=== PATIENT | female | born 1965 | race Caucasian/White ===

== ENCOUNTER 2022-05-24 03:39 | Emergency (ER) | payer OTHER, SELFPAY ==
[2022-05-24 03:44] VITALS: BP 140/75; PULSE 73; RESP 25; TEMP 37; O2SAT 99; BMI 23.0
[2022-05-24 04:09] LABS: MANUAL DIFF FLAG NO
[2022-05-24 04:10] LABS: Basophils Percent Auto 0.6 % (0-2); Eosinophils Absolute Auto 0.2 X10*3/uL (0.0-0.4); Eosinophils Percent Auto 2.5 % (0-4); Hematocrit 41.3 % (37.0-47.0); Hemoglobin 13.5 g/dl (12.0-16.0); Imm Gran Abs Auto 0.05 X10*3/uL (0.00-0.03); Imm Gran Pct Auto 0.7 % (0.0-0.4); Lymphocytes Absolute Auto 2.6 X10*3/uL (1.2-4.9); Lymphocytes Percent Auto 37.7 % (20-40); Mean Corpuscular HGB Conc 32.7 g/dl (31.0-35.0); Mean Corpuscular Hemoglobin 29.4 pg (27.0-33.0); Mean Platelet Volume 9.7 fL (9.4-12.3); Monocytes Absolute Auto 0.6 X10*3/uL (0.1-1.2); Monocytes Percent Auto 8.5 % (2-11); Neutrophils Absolute Auto 3.5 x10*3/uL (2.0-8.3); Platelet Count 299 X10*3/uL (160-400); Red Blood Count 4.59 X10*6/uL (4.20-5.50); Red Cell Distribution Width 11.6 % (11.0-16.0); White Blood Count 6.9 X10*3/uL (4.8-10.8)
[2022-05-24 04:11] LABS: Appearance Urine Clear; Color Urine Yellow; Glucose Urine UA Negative (Negative); Leukocyte Esterase Urine Large (3+) (Negative); Nitrite Urine Positive (Negative); PH 5.5 (5.0-9.0); Specific Gravity - Urine 1.015 (1.005-1.025); UMIC TRIGGER UACC YES; Urine Blood Large (3+) (Negative); Urine Ketones Negative (Negative); Urine Protein 30 (1+) mg/dL (Neg-Trace)
[2022-05-24 04:16] LABS: Bacteria Urine 4+ (None Seen); Hyaline Casts Urine 0-2 /LPF (0-2); RBC Urine >20 /HPF (0-2); UACC Culture Trigger YES; WBC Urine >50 /HPF (0-5)
[2022-05-24 04:27] LABS: Alanine Aminotransferase 17 U/L (0-31); Albumin Level 4.3 g/dL (3.5-5.0); Alkaline Phosphatase 88 U/L (39-117); Anion Gap 17 (12-20); Aspartate Amino Transferase 17 U/L (5-31); Bilirubin Total 0.3 mg/dL (0.0-1.0); Blood Urea Nitrogen 20 mg/dL (9-16); Calcium 9.3 mg/dL (8.4-10.2); Carbon Dioxide 25 mmol/L (22-29); Chloride 105 mmol/L (96-108); Creatinine Clr Calc Pharmacy 60.5; Estimated Glomerular Filt Rate 56; Glucose Random 129 mg/dL (60-115); Potassium 4.1 mmol/L (3.3-5.1); Sodium 143 mmol/L (135-145); Total Protein 6.9 g/dL (6.5-8.0)
[2022-05-24 04:32] VITALS: BP 151/95; PULSE 71; RESP 17; TEMP 37; O2SAT 99
--- NOTE | 2022-05-24 04:52 | ED.ABDPAIN ---
HPI - Abdominal Pain General Chief Complaint: Abdominal Pain Stated Complaint: Abd pain Time Seen by Provider: 05/24/22 04:37 Source: patient Mode of arrival: ambulatory Limitations: no limitations History of Present Illness HPI narrative: Patient woke up at 01:00 with left lower abdominal pain with nausea vomited 2 times urinating small amount no dysuria no frequency had some chills no fever no flank pain with no history of ovarian cyst no vaginal discharge. At this time pain is getting better of off its own Related Data Previous Rx's Medication Instructions Recorded cefuroxime axetil 250 mg tablet 250 mg PO BID 7 days #14 tabs 05/24/22 ibuprofen 600 mg tablet 600 mg PO Q6H PRN fever or pain 05/24/22 #30 tabs phenazopyridine 200 mg tablet 200 mg PO TID 2 days #6 tabs 05/24/22 (Pyridium) Allergies Allergy/AdvReac Type Severity Reaction Status Date / Time No Known Allergies Allergy Verified 05/24/22 03:45 [No Known Allergies*] Review of Systems Review of Systems Yes all other systems are reviewed and are negative [facility] Social History Social History Advance Directives: No Advance Directives Information Provided: Yes Patient : No Physical Exam ED Vital Signs: Vital Signs - 24 hr 05/24/22 03:44 05/24/22 04:32 Temperature 98.6 F 98.6 F Pulse Rate 73 71 Respiratory Rate 25 H 17 Blood Pressure 140/75 H 151/95 H Pulse Oximetry 99 99 Oxygen Delivery Method Room Air Room Air BMI result Body Mass Index 23.0 Appearance: Alert. Oriented X3. No acute distress. ENT: Pharynx normal. Oral Mucosa moist Neck: Normal inspection. Neck supple. CVS: Normal heart rate and rhythm. Pulses normal. Respiratory: No respiratory distress. Equal air entry bilateral, no wheezing/rales/rhonchi Abdomen: Soft mild tenderness left lower quadrant no rebound tenderness or guarding. Bowel sounds are present, no mass palpable, no CVA tenderness Skin: Skin warm and dry. Normal skin color. Normal skin turgor. Extremities: No lower extremity edema. No calf tenderness Neuro: Oriented X 3. MDM - Abdominal Pain MDM Narrative Medical decision making narrative: Patient UTI patient feeling much better now with abdominal pain possible might have ovarian cyst patient does not want to stay till 07:00 for ultrasound will follow up with outpatient Differential Diagnosis Differential diagnosis: Likely ovarian cyst Lab Data Attestation: I reviewed the patient's lab results. Result diagrams: 05/24/22 04:04 05/24/22 04:04 Labs: Lab Results 05/24/22 05/24/22 05/24/22 Range/Units 04:04 04:04 04:04 WBC 6.9 (4.8-10.8) X10*3/uL RBC 4.59 (4.20-5.50) X10*6/uL Hgb 13.5 (12.0-16.0) g/dl Hct 41.3 (37.0-47.0) % MCV 90.0 (80.0-98.0) fL MCH 29.4 (27.0-33.0) pg MCHC 32.7 (31.0-35.0) g/dl RDW 11.6 (11.0-16.0) % Plt Count 299 (160-400) X10*3/uL MPV 9.7 (9.4-12.3) fL Immature Gran % (Auto) 0.7 H (0.0-0.4) % Neut % (Auto) 50.0 (45-73) % Lymph % (Auto) 37.7 (20-40) % [place] % (Auto) 8.5 (2-11) % Eos % (Auto) 2.5 (0-4) % Baso % (Auto) 0.6 (0-2) % Lymph # (Auto) 2.6 (1.2-4.9) X10*3/uL [place] # (Auto) 0.6 (0.1-1.2) X10*3/uL Eos # (Auto) 0.2 (0.0-0.4) X10*3/uL Baso # (Auto) 0.0 (0.0-0.2) X10*3/uL Abs Immat Gran (auto) 0.05 H (0.00-0.03) X10*3/uL Absolute Neuts (auto) 3.5 (2.0-8.3) x10*3/uL Absolute Nucleated RBC 0.000 (0.0-0.012) X10*3/uL Nucleated RBC % (auto) 0.0 (0.0-0.2) /100WBC Sodium 143 (135-145) mmol/L Potassium 4.1 (3.3-5.1) mmol/L Chloride 105 (96-108) mmol/L Carbon Dioxide 25 (22-29) mmol/L Anion Gap 17 (12-20) BUN 20 H (9-16) mg/dL Creatinine 1.02 (0.5-1.4) mg/dL Estim Creat Clear Calc 60.5 Estimated GFR 56 Random Glucose 129 H (60-115) mg/dL Calcium 9.3 (8.4-10.2) mg/dL Total Bilirubin 0.3 (0.0-1.0) mg/dL AST 17 (5-31) U/L ALT 17 (0-31) U/L Alkaline Phosphatase 88 (39-117) U/L Total Protein 6.9 (6.5-8.0) g/dL Albumin 4.3 (3.5-5.0) g/dL Urine Color Yellow Urine Appearance Clear Urine pH 5.5 (5.0-9.0) Ur Specific [place] 1.015 (1.005-1.025) Urine Protein 30 (1+) H (Neg-Trace) mg/dL Urine Glucose (UA) Negative (Negative) mg/dL Urine Ketones Negative (Negative) mg/dL Urine Blood Large (3+) H (Negative) Urine Nitrite Positive H (Negative) Ur Leukocyte Esterase Large (3+) H (Negative) Urine RBC >20 H (0-2) /HPF Urine WBC >50 H (0-5) /HPF Ur Squamous Epith Cells 6-10 (0-2) /HPF Urine Bacteria 4+ (None Seen) Hyaline Casts 0-2 (0-2) /LPF Discharge Plan Discharge Clinical Impression: UTI (urinary tract infection) Patient Disposition: Home, Self-Care Instructions: Urinary Tract Infection in Women (ED) Additional Instructions: Drink plenty of water Antibiotic as advised Report to the ER if worsening of pain possibly you have ruptured small ovarian cyst on the left side Prescriptions: New cefuroxime axetil 250 mg tablet 250 mg PO BID 7 Days Qty: 14 0RF phenazopyridine [Pyridium] 200 mg tablet 200 mg PO TID 2 Days Qty: 6 0RF ibuprofen 600 mg tablet 600 mg PO Q6H PRN (Reason: fever or pain) Qty: 30 0RF
[2022-05-24] MEDS: Ibuprofen 600 MG TABLET PO (05:12)
[2022-05-24] MEDS: Ondansetron ODT 4 MG TAB.RAPDIS TRANSLINGU (05:12)
[2022-05-24 05:40] VITALS: BP 139/77; PULSE 70; RESP 16; TEMP 37; O2SAT 100
== END 2022-05-24 05:43 | disposition home or self-care (01) ==
PROVIDERS: Emergency Provider Internal Medicine
DX: N39.0 Urinary tract infection, site not specified (principal); R10.32 Left lower quadrant pain; Z79.899 Other long term (current) drug therapy
CPT/HCPCS: 36415; 80053; 81001; 85025; 87086; 87088; 87186; 99283; 99284

== ENCOUNTER 2024-10-27 15:23 | Outpatient (AMB) | payer OTHER, SELFPAY ==
--- NOTE | 2024-10-27 15:26 | A.OFFPC_ITS ---
Vital Signs 10/27/24 15:27 Height 5 ft 5.35 in Weight 151 lb 2 oz BMI 24.9 BP 120/72 Blood Pressure Location Lt brachial Position Sitting Pulse 77 Pulse Source Pulse Oximeter Temp 97.3 F Temp Source Temporal Artery Scan Pulse Oximetry (%) 98 Oxygen Delivery Method Room Air Intake Visit Reasons: establish care Intake Note: Patient is a new patient here to establish care for Hx of kidney stones. Transferring care from Dr Severino ([facility]). Medical records have been requested and have not received. Publications Distribution Clerk Required: No Chain Mender: Not Required per policy Accompanied by: Self / Same As Patient Allergies No Known Allergies [No Known Allergies*] Allergy (Verified 10/27/24 15:43) Medication List - Last Reconciled 10/27/24 by Nia Lopez PA-C No Known Home Meds Tobacco use date assessed: 10/27/24 Dental Screening Dental Screen Date: 10/27/24 Did you have a dental visit in the last 12 months?: Yes Did you have a dental problem in the last 6 months where you did not have access to dental care?: No Was dental information given to patient?: Patient has dentist HPI establish care HPI Details 59-year-old female coming to the office for the 1st time. Presenting for establishment of care and comprehensive wellness examination addressing urinary tract infections, and kidney stones. She has undergone a lumpectomy in the past for a benign breast lump. The patient reports recurrent urinary tract infections, associated with the presence of kidney stones. She does see Urology through [facility] U[facility] and gynecology through [place]. mammogram: UTD through [facility] Colonoscopy: last done 7 years ago pap smear: UTD through [facility] Vaccine: due to TdaP PFSH Medical History Benign breast lumps Surgical History History of lumpectomy History of cholecystectomy Family History Father Colon cancer, Onset Age: 70 Paternal Aunt Breast cancer Social History Housing: House Alcohol intake: current Alcohol intake frequency: holidays/special occasions only Patient Tobacco Use Status: Never used Tobacco e-Cigarette/Vaping Use: Never Used Second Hand Smoke Exposure: No service: No Current occupational status: employed Current occupation: Medical Assist Cognitive needs: No Hearing needs: No Vision needs: Yes (Glasses) Female Reproductive History Menstrual control method: none Total pregnancies: 2 Full term: 2 History of abnormal pap smear: Yes (most recently have been normal ) Questionnaire PHQ-9 Over the last 2 weeks, how often have you been bothered by any of the following problems? 1. Little interest or pleasure in doing things: not at all 2. Feeling down, depressed, or hopeless: not at all 3. Trouble falling or staying asleep, or sleeping too much: not at all 4. Feeling tired or having little energy: not at all 5. Poor appetite or overeating: not at all 6. Feeling bad about yourself - or that you are a failure or have let yourself or your family down: not at all 7. Trouble concentrating on things, such as reading the newspaper or watching television: not at all 8. Moving or speaking so slowly that other people could have noticed. Or the opposite - being so fidgety or restless that you have been moving around a lot more than usual: not at all 9. Thoughts that you would be better off or of hurting yourself in some way: not at all Total score: 0 Depression Screening Interpretation: Negative Depression Screening Done: Yes Source: Developed by Drs. Nitesh Dow, Apryl Castaneda, Sukhwinder Reyes and colleagues, with an educational kendell from [employer]. Thrive Questionnaire Date Thrive assessed: 10/20/24 I am a: Patient What is your living situation today?: I have a steady place to live Within the past 12 months, did the food you bought not last and you didn't have the money to get more?: Never true Within the past 12 months, did you worry whether your food would run out before you got money to buy more?: Never true Do you have trouble paying for medicines?: No Do you have trouble getting transportation to medical appointments?: No Do you have trouble paying your heating and electricity bill?: No Do you have trouble taking care of your child, family member or friend?: No Do you have trouble with day-to-day activities such as bathing, preparing meals, shopping, managing finances, etc.?: No Are you currently unemployed and looking for a job?: No Are you interested in more education?: No Please select the resources that you would like help with: None Currently or been in a relationship where the following occur: No concerns reported THRIVE Score: 0 AUDIT C Alcohol Use Questionnaire (AUDIT-C) 1. How often do you have a drink containing alcohol?: 2-4 times a month 2. How many drinks containing alcohol do you have on a typical day when you are drinking?: 1 or 2 3. How often do you have six or more drinks on one occasion?: Never Total Score: 2 DANG-7 AMB Questionnaire DANG-7 Date DANG - 7 assessed: 10/27/24 Feeling nervous, anxious, or on edge: 0 = Not at all Not being able to stop or control worryin = Not at all Worrying too much about different things: 0 = Not at all Trouble relaxin = Not at all Being so restless that it is hard to sit still: 0 = Not at all Becoming easily annoyed or irritable: 0 = Not at all Feeling afraid as if something awful might happen: 0 = Not at all Total DANG-7 score (0-4 normal; 5-9 mild; 10-14 moderate; 15-21 severe): 0 Source: Developed by Drs. Nitesh Dow, Apryl Castaneda, Sukhwinder Reyes and colleagues, with an educational kendell from [employer]. DANG-7 Assessment Billing DANG-7 Assessment Tool: DANG-7 Assessment 20584 Review of Systems Const Denies body aches, Denies chills, Denies fever(s), Denies headache(s) and Denies poor appetite Eyes Reports no additional complaints ENT Denies dysphagia, Denies dizziness, Denies headache(s) and Denies odynophagia Card Denies chest pain, Denies syncope, Denies edema, Denies irregular heart rhythm, Denies lightheadedness and Denies dyspnea Resp Denies cough and Denies dyspnea GI Denies abdominal pain, Denies constipation, Denies dysphagia, Denies diarrhea, Reports loose stools, Denies nausea, Denies odynophagia and Denies vomiting Details: recurrent UTI Reports no additional complaints Musc Reports no additional complaints and Denies abnormal gait Skin/Breast Reports system reviewed and no additional complaints, except as documented Neuro Denies abnormal gait, Denies dizziness, Denies syncope and Denies headache(s) Psych Reports no additional complaints Physical exam (Primary Care) Vital Signs: Last Vital Signs Temp 97.3 F 10/27/24 15:27 Pulse 77 10/27/24 15:27 BP 120/72 10/27/24 15:27 Pulse Ox 98 10/27/24 15:27 Oxygen Delivery Method Room Air 10/27/24 15:27 BMI result Body Mass Index 24.9 Tobacco/Smoking Status: Tobacco use Status Tobacco use date assessed 10/27/24 10/27/24 15:32 Patient Tobacco Use Status Never used Tobacco 10/27/24 15:36 e-Cigarette/Vaping Use Never Used 10/27/24 15:36 PHQ-9: PHQ-9 Score PHQ-9: Total score 0 10/27/24 15:42 Depression Screening Interpretation: Negative Thrive Assessment: Date of Thrive Assessment Date Thrive assessed 10/20/24 10/27/24 15:32 Currently or been in a relationship where the following occur: No concerns reported Const General: cooperative, healthy appearing, comfortable and no acute distress Orientation/consciousness: patient oriented x3 HENMT Head: Yes normocephalic Ears: hearing grossly normal bilaterally General nose exam: Normal external nose present Eyes General: appearance normal, both eyes and all related structures Conjunctivae: conjunctivae normal Neck Neck: Yes full ROM and Yes no lymphadenopathy Resp Effort & Inspection: normal respiratory effort Auscultation: clear to auscultation bilaterally, no crackles, no rales, no rhonchi and no wheezes Cardio Rate: regular rate Rhythm: regular rhythm Skin General skin exam: no rashes or lesions noted Neuro General: patient oriented x3 Gait exam (Neuro): Normal gait present Extrem General: Yes normal to inspection, Yes full ROM and No edema Psych Affect: normal affect Attitude: cooperative Insight: Good insight present (Psych) Judgement: Good judgement present (Psych) Immunizations Boostrix Tdap 2.5 Lf unit-8 mcg-5 Lf/0.5 mL intramuscular syringe Performing Provider: Nia Lopez PA-C [facility] Administered by: AMBER Lantigua on 10/27/24 16:00 Dose Route Admin Location Dispensed Lot Number Expiration Date NDC Veterinary Surgery Technologist 0.5 mL IM Left Deltoid 0.5 mL [id number] 01/28/27 [id number] [employer] VIS Given Date VIS Provided VIS Publication Date 10/27/24 Single Vaccine 24 Eligibility Eligibility Date Funding Source Not [facility] Eligible 10/27/24 Private Coding Level of Care Code New Pt Level 3 (90555) Diagnoses Loose stools R19.5 Recurrent UTI N39.0 Nephrolithiasis N20.0 Additional Codes DANG-7 Assessment Billing - DANG-7 Assessment Tool: DANG-7 Assessment 98225 ([id number]) Assessment & Plan Assessment & Plan (1) Loose stools: Code(s): R19.5 - Other fecal abnormalities Category: Medical Plan: Patient having occasional loose stools. She is due for colonoscopy and referral was placed to gastroenterology today. Advised to add fiber supplemented diet to bind the stools and make formed stools. (2) Recurrent UTI: Code(s): N39.0 - Urinary tract infection, site not specified Category: Medical Plan: Continue to follow with [facility] Urology, stay well hydrated. (3) Nephrolithiasis: Code(s): N20.0 - Calculus of kidney Category: Medical Plan: Patient follows with [facility] Urology plan to request these notes. Advised to stay well hydrated. Plan A comprehensive health evaluation was initiated to solidify patient care. Essential blood work ordered includes tests of thyroid, kidney, liver functions, and a cholesterol panel with an emphasis on fasting. Continuity of screening with mammograms is maintained, and a referral was arranged for overdue colonoscopy. Dietary advice included increasing fiber, whether through supplements or fiber-rich foods. Updated tetanus vaccination was completed today. Follow-up to review labs and conduct a full annual exam is planned in approximately three months. Management of UTIs and kidney stones continues under urology care. This note was constructed using voice recognition software. While every effort has been made to ensure accuracy and sterilizer machine operator, still areas may have been included sometimes these areas may affect the content or meeting of the given symptoms. Total time spent caring for the patient today was 30 minutes. This includes time spent before the visit reviewing the chart, time spent during the visit, and time spent after the visit and documentation. Patient was informed and verbally consented to the use of an ambient scribe for clinic note documentation during this visit. Orders: Orders Comprehensive Met. Panel Today Z00.00 - Encounter for general adult medical examination without abnormal findings Free T4 (Free Thyroxine) Today Z00.00 - Encounter for general adult medical examination without abnormal findings TSH reflex Free T4 Today Z00.00 - Encounter for general adult medical examination without abnormal findings Lipid Panel Today Z13.220 - Encounter for screening for lipoid disorders TDaP Immunization Today Z23 - Encounter for immunization Complete Blood Count Auto Diff Today Z00.00 - Encounter for general adult medical examination without abnormal findings Vitamin B12 and Folate Today Z00.00 - Encounter for general adult medical examination without abnormal findings Vitamin D 25-OH Total Today Z00.00 - Encounter for general adult medical examination without abnormal findings Referrals Gastroenterology Referral Z12.11 - Encounter for screening for malignant neoplasm of colon Medications: New Boostrix Tdap (diphth,pertus(acell),tetanus) 0.5 mL IM ONCE 0.5 mL 0RF NS Z23 - Encounter for immunization Discontinued ibuprofen Discontinued Reason: Patient no longer taking 600 mg PO Q6H PRN 30 tabs 0RF fever or pain cefuroxime axetil Discontinued Reason: Patient no longer taking 250 mg PO BID 7 days 14 tabs 0RF phenazopyridine (Pyridium) Discontinued Reason: Patient no longer taking 200 mg PO TID 2 days 6 tabs 0RF
[2024-10-27 15:27] VITALS: BP 120/72; PULSE 77; TEMP 36.3; O2SAT 98; BMI 24.9
--- OUTSIDE RECORDS SUMMARY | 2024-10-27 17:21 | XMS_ITS | Clinical Summary ---
Author Organization [facility] Address [address] [place] [address] Care Team Providers Care Grader Marker Name Role Phone Maryann Westbrook MD Primary Care Provider [phone] Surgical History Surgery Date Site/Laterality Comments OTHER SURGICAL HISTORY PROCEDURE: ---- OTHER ----; COMMENT: breast biopsy/benign WISDOM TOOTH EXTRACTION PROCEDURE: HISTORICAL WISDOM TEETH EXTRACTION COLONOSCOPY 12/19/2015 PROCEDURE: HISTORICAL COLONOSCOPY; COMMENT: adenoma; repeat in 5 yrs OTHER SURGICAL HISTORY 01/11/2021 N/A PROCEDURE: [place] LAPS SURG CHOLECSTC W/EXPL COMMON DUCT; COMMENT: lap urbano with cholangiogram and CBD exploration - Dr. Christopher Blair [facility] BREAST BIOPSY Right PROCEDURE: BX BREAST; PERC NEEDLE CORE W/IMAG GUID; COMMENT: benign FINE NEEDLE ASPIRATION 03/2020 Left PROCEDURE: FINE NDLE ASPRTN W/IMAGING GUIDANCE; COMMENT: apocrine metaplasia LITHOTRIPSY 05/21/2021 PROCEDURE: HISTORICAL LITHOTRIPSY; COMMENT: right-sided ureteroscopic stone lithotripsy and stone removal, right-sided urtereronephroscopic stone lithotripsy and stone removal, right sided retrograde pyelogram and stent exchange, Dr. 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 Christopher Blair Renal calculus, right DX:Renal c alculus, right; COMMENT: followed by Dr. Mariia Adams History of abnormal mammogram DX :History of abnormal mammogram; COMMENT: Left breast, US guided core biopsy done, [facility] for repeat mammogram 02/24/2021 Hydronephrosis DX:Hydronephrosi s; COMMENT: CT abdomen and pelvis with contrast on 01/09/2021 shows right renal staghorn calculus and additional nonobstructing right renal calculi along with moderate to severe right hydronephrosis Nephrolithiasis 07/05/2021 DX:Nephrolithias is; COMMENT: H/o right-sided lower pole staghorm kidney stone s/p lithotripsy with Dr. Gore Family History Medical History Relation Name Comments Breast cancer Aunt paternal aunt, 60s Diabetes Brother 1 HTN, cholestero l Hypertension Brother 2 Hypertension Brother 3 No Known Problems Brother 4 No Known Problems Brother 5 No Known Problems Brother 6 No Known Problems Daughter Colon cancer Father hypertension, h yperlipidemia, hypothyroid, dementia Hypertension Mother cholesterol, DM , smoker, AAA Diabetes Sister COPD, cholester ol No Known Problems Son Ovarian cancer Neg Hx Relation Name Status Comments Aunt Brother 1 Alive Brother 2 Alive Brother 3 Alive Brother 4 Alive Brother 5 Alive Brother 6 Alive Daughter Alive 1991; [place] Father (Age 83) Mother (Age 72) Sister Alive Son Alive 1995; Vitaliy Social History Tobacco Use Types Packs/Day Years Used Date Smoking Tobacco: Never Smokeless Tobacco: Never Alcohol Use Standard Drinks/Week Comments Yes 0.8 (1 standard drink = 0.6 oz p ure alcohol) Comments Unknown Sex and Gender Information Value Date Recorded Sex Assigned at Not on file Legal Sex Female 12:13 AM EST Gender Identity Not on file Sexual Orientation Not on file Obstetrics History Last Filed Vital Signs Vital Sign Reading Time Taken Comments Blood Pressure 124/89 08/15/2023 2:31 PM EST Pulse 87 08/15/2023 2:31 PM EST Temperature - - Respiratory Rate - - Oxygen Saturation - - Inhaled Oxygen Concentration - - Weight 67.9 kg (149 lb 9.6 oz) 08/15/2023 2:31 P M EST Height 170.2 cm (5' 7 ) 08/15/2023 2:31 PM EST Body Mass Index 23.43 08/15/2023 2:31 PM EST Plan of Treatment Upcoming Encounters Date Type Department Care Team ([facility] st Contact Info) Description 05/13/2025 2:00 PM EDT Appointment Radiology Department [address] [phone] Health Maintenance Due Date Last Done Comments Hepatitis B Vaccines (1 of 3 - 19+ 3-dose series) 1986 Pneumococcal Vaccine: 50+ Years (1 of 2 - PCV) 1986 Pneumococcal Vaccine: Pediatrics (0 to 5 Years) and At-Risk Patients (6 to 64 Years) (1 of 2 - PCV) 1986 Zoster Vaccines (1 of 2) 1986 COVID-19 Vaccine (3 - Pfizer risk series) 12/16/2020 11/18/2020, 10/28/2020 DTaP,Tdap,and Td Vaccines (3 - Td or Tdap) 12/01/2021 12/02/2011, 03/02/2007 Cholesterol Screening (Lipid Panel) 06/29/2022 Colorectal Cancer Screening: Colonoscopy 06/29/2022 Depression Screening 06/29/2022 HIV Screening 06/29/2022 Hepatitis C Screening 06/29/2022 Social Influencers of Health Screening 06/29/2022 Cervical Cancer Screening: Pap Smear 08/15/2024 08/15/2023 Influenza Vaccine (Season Ended) 2025 04/02/2021, 03/20/2015 Breast Cancer Screening 04/23/2026 04/23/20 24, 04/23/2024, 04/18/2023, Additional history exists HIB Vaccines Aged Out No longer eligi ble based on patient's age to complete this topic HPV Vaccines Aged Out No longer eligi ble based on patient's age to complete this topic Hepatitis A Vaccines Aged Out No long er eligible based on patient's age to complete this topic IPV Vaccines Aged Out No longer eligi ble based on patient's age to complete this topic MMR Vaccines Aged Out No longer eligi ble based on patient's age to complete this topic Meningococcal ACWY Vaccine Aged Out N o longer eligible based on patient's age to complete this topic Meningococcal B Vaccine Aged Out No l onger eligible based on patient's age to complete this topic RSV Immunization Patients Under 20 months Aged Out No longer eligible based on patient's age to complete this topic Varicella Vaccines Aged Out No longer eligible based on patient's age to complete this topic Procedures Procedure Name Priority Date/Time Associated Diagnosis Comments SCREENING MAMMOGRAPHY BI 2-VIEW BREAST INC CAD Routine 04/23/2024 2:00 PM EDT Encounter for screening mammogram for malignant neoplasm of breast PAP SMEAR Routine 08/15/2023 from Last 3 Months or Most Recently Relevant to Health Maintenance Results * SCREENING MAMMOGRAPHY BI 2-VIEW BREAST INC CAD (04/23/2024 2:00 PM EDT) Anatomical Region Laterality Modality Radiographic Heidi ging 04/18/2023 1:51 PM EDT Narrative 04/26/2024 7:56 AM EDT This is a summary report. The complete report is available in the patient's medical record. If you cannot access the medical record, please contact the sending organization for a detailed fax or copy. Exam: Screening mammogram Findings: Digital bilateral full-field screening mammography is performed with tomosynthesis and interpreted with the aid of computer-aided detection. ??Comparison is made with 04/18/2023 and as far back as 02/16/2020. Breast parenchyma is composed of scattered fibroglandular densities. ??Stable bilateral nodularity. No new suspicious mass, architectural distortion, or suspicious calcifications. Impression: No mammographic evidence of malignancy. BI-RADS 2-benign [address] [address] Procedure Note Pati Blevins MD - 06/14/2024 This is a summary report. The complete report is available in thepatient's medical record. If you cannot access the medical record, pleasecontact the sending organization for a detailed fax or copy. Exam: Screening mammogram Findings: Digital bilateral full-field screening mammography is performedwith tomosynthesis and interpreted with the aid of computer-aideddetection. Comparison is made with 04/18/2023 and as far back as02/16/2020. Breast parenchyma is composed of scattered fibroglandular densities.Stable bilateral nodularity. No new suspicious mass, architecturaldistortion, or suspicious calcifications. Impression: No mammographic evidence of malignancy. BI-RADS 2-benign [address] [address] us Carina HENRY IMG XR PROCEDURES Final Result * Pap smear (08/15/2023) 08/15/2023 Narrative HISTORICAL TESTING LAB RESULTING AGENCY - 08/29/2023 4:46 PM EST [id number] THINPREP PAP, IMAGED: NEGATIVE FOR SQUAMOUS INTRAEPITHELIAL LESION AND MALIGNANCY . REACTIVE CELLULAR CHANGES. MICHOACANO MEDRANO M.D. , PATHOLOGIST (CASE ELECTRONICALLY SIGNED 08 29 2023) RESULT OF APTIMA HIGH RISK HPV ASSAY: HIGH RISK HPV: ??NEGATIVE (SEROTYPES 16,18,31,33,35,39,45,51,52,56,58,59,66,68) COMPLETED ON 2023-08-20 ADEQUACY: SATISFACTORY ENDOCERVICAL/TRANSFORMATION ZONE COMPONENT PRESENT. SOURCE: THINPREP PAP HPV ANY DX: ??REFLEX 16 AND 18, CERVICAL, IMAGED CLINICAL INFORMATION: HPV ANY DIAGNOSIS. LMP 11/27/2016, PAP HX NEGATIVE, [Z01.419] us Jessica Magallanes CN LAB CYTOLOGY ORDERABLES Final R esult HISTORICAL TESTING LAB RESULTING AGENCY from Last 3 Months or Most Recently Relevant to Health Maintenance Care Teams Grader Marker Relationship Specialty Start Date End Date Maryann Westbrook MD [address] [facility] MEDICAL [facility] [place] [address] PCP - General Internal Medicine 01/10/21
== END 2024-10-27 16:03 | disposition home or self-care (01) ==
LOC: HO.HMCH 15:23
DX: R19.5 Other fecal abnormalities (principal); N39.0 Urinary tract infection, site not specified; N20.0 Calculus of kidney; Z23 Encounter for immunization

== ENCOUNTER → 2024-10-27 15:23 | Outpatient (BNVA) | payer OTHER, SELFPAY | DX: R19.5 Other fecal abnormalities (principal); Z23 Encounter for immunization; N39.0 Urinary tract infection, site not specified; N20.0 Calculus of kidney | CPT/HCPCS: 90471; 90715; 96127 ==

== ENCOUNTER 2024-11-30 11:50 | Emergency (ER) | payer OTHER, SELFPAY ==
--- NOTE | 2024-11-30 12:05 | ED_ITS ---
HPI - General Adult General Chief complaint: Abdominal Pain Stated complaint: Abd/back pain, nausea Time Seen by Provider: 11/30/24 14:31 Source: patient Mode of arrival: ambulatory Limitations: no limitations History of Present Illness ED Provider: Dr. Brown HPI narrative: 59 year old female PMH: Adrianna, lumpectomy, HLD, recurrent UTI's who presents to the ER for dysuria frequency and suprapubic pain. Patient had labs and urine sent in triage. Related Data Previous Rx's ?Medication ?Instructions ?Recorded cefuroxime axetil 500 mg tablet 500 mg PO BID 7 days #14 tabs 11/30/24 ondansetron 4 mg disintegrating 4 mg PO Q6H #14 tabs 11/30/24 tablet Allergies Allergy/AdvReac Type Severity Reaction Status Date / Time No Known Allergies Allergy Verified 11/30/24 12:07 [No Known Allergies*] Review of Systems 2 Review of Systems: Review of systems: General: Patient denies any fever chills recent illness or falls Musculoskeletal: Denies back pain or body aches or other injuries HEENT: denies headache, runny nose, ear pain Respiratory: denies shortness of breath, cough Cardiovascular: no chest pain or palpitations : dysuria, frequency Abdomen: no nausea vomiting she does have suprapubic abdominal pain Extremities: no swelling, no pain Skin: no diaphoresis Yes all other systems are reviewed and are negative PMFSH Past Medical History Medical History Benign breast lumps Surgical History History of lumpectomy History of cholecystectomy Family History Family History Father Colon cancer, Onset Age: 70 Paternal Aunt Breast cancer Social History Social History Housing: House Alcohol intake: current Alcohol intake frequency: holidays/special occasions only Patient Tobacco Use Status: Never used Tobacco Smoked in Last 30 Days: No e-Cigarette/Vaping Use: Never Used Second Hand Smoke Exposure: No Use of substances other than those prescribed or required for medical reasons: No Advance Directives: No Advance Directives Information Provided: Yes Patient : No service: No Current occupational status: employed Current occupation: Medical Assist Cognitive needs: No Hearing needs: No Vision needs: Yes (Glasses) Physical Exam ED Vital Signs: Vital Signs - 24 hr 11/30/24 12:06 Temperature 98.4 F Pulse Rate 92 Respiratory Rate 18 Blood Pressure 132/86 Pulse Oximetry 100 Oxygen Delivery Method Room Air BMI result Body Mass Index 23.2 General: Well-appearing well-nourished in no signs of distress HEENT: Normocephalic atraumatic Neck: No signs of JVD, no masses no tenderness or lymphadenopathy Cardiovascular: Regular rate and rhythm Respiratory: Clear to auscultation bilaterally Abdomen: Soft nontender no masses pain had no CVA tenderness Extremities: Normal pedal pulses no signs of edema Skin: Dry warm no rashes Back: No tenderness full ROM Course Course Course Narrative: This is a rapid medical exam performed by Dia Mendez NP: Additional HPI, ROS, PE not included below will be deferred to primary provider. Patient is a 59-year-old female with pmhx recurrent UTIs presenting to the ED with complaint of lower abdominal and back pain. Abd pain since Sat, lower back pain since this am. Vomiting yesterday, constant nausea, painful diarrhea. Decreased appetite. Plan: labs, UA Medical Decision Making Medical Decision Making [facility] Narrative: patient has no fever exam was benign I do not think it is any need further imaging a I think it is reasonable to start antibiotics and have the patient follow up with her doctor for Differential Diagnosis Differential Diagnoses: The differential diagnosis associated with the presentation includes UTI, pyelonephritis, sepsis Admission/Observation Consideration of admission/observation: Escalation of care including admission/observation considered Lab Data [facility] Lab Attestation statement: I reviewed the patient's lab results. 11/30/24 12:37 11/30/24 12:37 Labs: Lab Results 11/30/24 Range/Units 12:37 WBC 8.3 (4.8-10.8) X10*3/uL RBC 4.66 (4.20-5.50) X10*6/uL Hgb 14.2 (12.0-16.0) g/dl Hct 41.5 (37.0-47.0) % MCV 89.1 (80.0-98.0) fL MCH 30.5 (27.0-33.0) pg MCHC 34.2 (31.0-35.0) g/dl RDW 11.9 (11.0-16.0) % Plt Count 288 (160-400) X10*3/uL MPV 9.8 (9.4-12.3) fL Immature Gran % (Auto) 0.2 (0.0-0.4) % Neut % (Auto) 82.4 H (45-73) % Lymph % (Auto) 11.8 L (20-40) % [place] % (Auto) 4.8 (2-11) % Eos % (Auto) 0.4 (0-4) % Baso % (Auto) 0.4 (0-2) % Lymph # (Auto) 1.0 L (1.2-4.9) X10*3/uL [place] # (Auto) 0.4 (0.1-1.2) X10*3/uL Eos # (Auto) 0.0 (0.0-0.4) X10*3/uL Baso # (Auto) 0.0 (0.0-0.2) X10*3/uL Abs Immat Gran (auto) 0.02 (0.00-0.03) X10*3/uL Absolute Neuts (auto) 6.9 (2.0-8.3) x10*3/uL Absolute Nucleated RBC 0.000 (0.0-0.012) X10*3/uL Nucleated RBC % (auto) 0.0 (0.0-0.2) /100WBC Sodium 142 (135-145) mmol/L Potassium 3.9 (3.3-5.1) mmol/L Chloride 106 (96-108) mmol/L Carbon Dioxide 25 (22-29) mmol/L Anion Gap 15 (12-20) BUN 14 (9-16) mg/dL Creatinine 0.92 (0.5-1.4) mg/dL Estim Creat Clear Calc 65.5 Estimated GFR > 60 Random Glucose 96 (60-115) mg/dL Calcium 9.3 (8.4-10.2) mg/dL Magnesium 2.1 (1.6-2.6) mg/dL Total Bilirubin 0.5 (0.0-1.0) mg/dL AST 36 H (5-31) U/L ALT 24 (0-31) U/L Alkaline Phosphatase 93 (39-117) U/L Total Protein 7.3 (6.5-8.0) g/dL Albumin 4.4 (3.5-5.0) g/dL Urine Color Dark Yellow Urine Appearance Cloudy Urine pH 5.5 (5.0-9.0) Ur Specific Midnight 1.020 (1.005-1.025) Urine Protein 30 (1+) H (Neg-Trace) mg/dL Urine Glucose (UA) Negative (Negative) mg/dL Urine Ketones 15 (Negative) mg/dL Urine Blood Negative (Negative) Urine Nitrite Positive H (Negative) Ur Leukocyte Esterase Moderate (2+) H (Negative) Urine RBC 0-2 (0-2) /HPF Urine WBC 6-10 (0-5) /HPF Ur Squamous Epith Cells 0-2 (0-2) /HPF Calcium Oxalate Crystal Present Urine Bacteria 4+ (None Seen) Hyaline Casts 0-2 (0-2) /LPF Radiology Impression Discussion of test interpretation with radiology: I have reviewed the radiologist's reading. External Record Review External record reviewed: Office record Prescription Management I considered prescription management with: Antibiotic Discharge Plan Discharge Clinical Impression: UTI (urinary tract infection) Patient Disposition: Home, Self-Care Instructions: Urinary Tract Infection in Women (DC) Additional Instructions: You were seen in the ER for a bladder infection You were given antibiotics and had blood work If you have any other concerns please return to the ER. Prescriptions: New cefuroxime axetil 500 mg tablet 500 mg PO BID 7 Days Qty: 14 0RF ondansetron 4 mg tablet,disintegrating 4 mg PO Q6H Qty: 14 0RF Print Language: Trinidadian
[2024-11-30 12:06] VITALS: BP 132/86; PULSE 92; RESP 18; TEMP 36.9; O2SAT 100; BMI 23.2
[2024-11-30 12:42] LABS: MANUAL DIFF FLAG NO
[2024-11-30 12:45] LABS: Appearance Urine Cloudy; Color Urine Dark Yellow; Glucose Urine UA Negative (Negative); Leukocyte Esterase Urine Moderate (2+) (Negative); Nitrite Urine Positive (Negative); PH 5.5 (5.0-9.0); UMIC TRIGGER UACC YES; Urine Blood Negative (Negative); Urine Ketones 15 mg/dL (Negative); Urine Protein 30 (1+) mg/dL (Neg-Trace)
[2024-11-30 12:49] LABS: Basophils Percent Auto 0.4 % (0-2); Eosinophils Percent Auto 0.4 % (0-4); Hematocrit 41.5 % (37.0-47.0); Hemoglobin 14.2 g/dl (12.0-16.0); Imm Gran Abs Auto 0.02 X10*3/uL (0.00-0.03); Imm Gran Pct Auto 0.2 % (0.0-0.4); Lymphocytes Percent Auto 11.8 % (20-40); Mean Corpuscular HGB Conc 34.2 g/dl (31.0-35.0); Mean Corpuscular Hemoglobin 30.5 pg (27.0-33.0); Mean Corpuscular Volume 89.1 fL (80.0-98.0); Mean Platelet Volume 9.8 fL (9.4-12.3); Monocytes Absolute Auto 0.4 X10*3/uL (0.1-1.2); Monocytes Percent Auto 4.8 % (2-11); Neutrophils Absolute Auto 6.9 x10*3/uL (2.0-8.3); Neutrophils Percent Auto 82.4 % (45-73); Platelet Count 288 X10*3/uL (160-400); Red Blood Count 4.66 X10*6/uL (4.20-5.50); Red Cell Distribution Width 11.9 % (11.0-16.0); White Blood Count 8.3 X10*3/uL (4.8-10.8)
[2024-11-30 12:58] LABS: Bacteria Urine 4+ (None Seen); Calcium Oxalate Crystals Urine Present; Hyaline Casts Urine 0-2 /LPF (0-2); RBC Urine 0-2 /HPF (0-2); Squamous Epithelial Cell Urine 0-2 /HPF (0-2); UACC Culture Trigger YES
[2024-11-30 13:00] LABS: Alanine Aminotransferase 24 U/L (0-31); Albumin Level 4.4 g/dL (3.5-5.0); Alkaline Phosphatase 93 U/L (39-117); Anion Gap 15 (12-20); Aspartate Amino Transferase 36 U/L (5-31); Bilirubin Total 0.5 mg/dL (0.0-1.0); Blood Urea Nitrogen 14 mg/dL (9-16); Calcium 9.3 mg/dL (8.4-10.2); Carbon Dioxide 25 mmol/L (22-29); Chloride 106 mmol/L (96-108); Creatinine Clr Calc Pharmacy 65.5; Estimated Glomerular Filt Rate > 60; Glucose Random 96 mg/dL (60-115); Magnesium 2.1 mg/dL (1.6-2.6); Potassium 3.9 mmol/L (3.3-5.1); Sodium 142 mmol/L (135-145); Total Protein 7.3 g/dL (6.5-8.0)
[2024-11-30] MEDS: cefuroxime axetiL 500 MG TABLET PO (15:05)
[2024-11-30 15:08] VITALS: BP 132/86; PULSE 92; RESP 18; TEMP 36.9; O2SAT 100
--- OUTSIDE RECORDS SUMMARY | 2024-11-30 15:48 | XMS_ITS | Clinical Summary ---
Author Organization [facility] Address [address] [place] [address] Care Team Providers Care Garland Machine Operator Name Role Phone Maryann Westbrook MD Primary Care Provider [phone] Surgical History Surgery Date Site/Laterality Comments OTHER SURGICAL HISTORY PROCEDURE: ---- OTHER ----; COMMENT: breast biopsy/benign WISDOM TOOTH EXTRACTION PROCEDURE: HISTORICAL WISDOM TEETH EXTRACTION COLONOSCOPY 12/19/2015 PROCEDURE: HISTORICAL COLONOSCOPY; COMMENT: adenoma; repeat in 5 yrs OTHER SURGICAL HISTORY 01/11/2021 N/A PROCEDURE: [place] LAPS SURG CHOLECSTC W/EXPL COMMON DUCT; COMMENT: lap urbano with cholangiogram and CBD exploration - Dr. Christopher Blair [facility] BREAST BIOPSY Right PROCEDURE: BX BREAST; PERC [...] Left breast, US guided core biopsy done, [facility] for repeat mammogram 02/24/2021 Hydronephrosis DX:Hydronephrosi s; [...] Upcoming Encounters Date Type Department Care Team ([facility] st Contact Info) Description 05/13/2025 2:00 PM EDT Appointment Radiology Department [address] [phone] Health Maintenance Due Date Last Done Comments [...] No mammographic evidence of malignancy. BI-RADS 2-benign [address] [address] Procedure Note Pati Blevins MD [...] No mammographic evidence of malignancy. BI-RADS 2-benign [address] [address] [place] Carina HENRY IMG XR PROCEDURES Final Result * Pap smear (08/15/2023) 08/15/2023 Narrative HISTORICAL TESTING LAB RESULTING AGENCY - 08/29/2023 4:46 PM EST [id number] THINPREP PAP, IMAGED: NEGATIVE FOR SQUAMOUS INTRAEPITHELIAL [...] Recently Relevant to Health Maintenance Care Teams Garland Machine Operator Relationship Specialty Start Date End Date Maryann Westbrook MD [address] [facility] MEDICAL [place] [address] PCP - General Internal Medicine 01/10/21
== END 2024-11-30 15:08 | disposition home or self-care (01) ==
PROVIDERS: Registered Nurse Emergency; Emergency Provider Student in an Organized Health Care Education/Training Program
DX: N39.0 Urinary tract infection, site not specified (principal); R30.0 Dysuria
CPT/HCPCS: 36415; 80053; 81001; 83735; 85025; 87086; 87088; 87186; 99283; 99284

== ENCOUNTER 2024-12-18 07:33 | Outpatient (REF) | payer OTHER, SELFPAY ==
--- OUTSIDE RECORDS SUMMARY | 2024-12-18 07:35 | XMS_ITS | Clinical Summary ---
Author Organization [facility] Address [address] [place] [address] Care Team Providers Care Stereo Compiler Name Role Phone Maryann Westbrook MD Primary Care Provider [phone] Surgical History Surgery Date Site/Laterality Comments OTHER SURGICAL HISTORY PROCEDURE: ---- OTHER ----; COMMENT: breast biopsy/benign WISDOM TOOTH EXTRACTION PROCEDURE: HISTORICAL WISDOM TEETH EXTRACTION COLONOSCOPY 12/19/2015 PROCEDURE: HISTORICAL COLONOSCOPY; COMMENT: adenoma; repeat in 5 yrs OTHER SURGICAL HISTORY 01/11/2021 N/A PROCEDURE: [place] LAPS SURG CHOLECSTC W/EXPL COMMON DUCT; COMMENT: lap urbano with cholangiogram and CBD exploration - Dr. Christopher Blair [facility] BREAST BIOPSY Right PROCEDURE: BX BREAST; [...] Left breast, US guided core biopsy done, [facility] for repeat mammogram 02/24/2021 Hydronephrosis DX:Hydronephrosi s; [...] Upcoming Encounters Date Type Department Care Team ([facility] st Contact Info) Description 05/13/2025 2:00 PM EDT Appointment Radiology Department [address] [phone] Health Maintenance Due Date Last Done Comments [...] No mammographic evidence of malignancy. BI-RADS 2-benign [address] [address] Procedure Note Pati Blevins MD [...] No mammographic evidence of malignancy. BI-RADS 2-benign [address] [address] [place] Carina HENRY IMG XR PROCEDURES Final Result * Pap smear (08/15/2023) 08/15/2023 Narrative HISTORICAL TESTING LAB RESULTING AGENCY - 08/29/2023 4:46 PM EST [id number] THINPREP PAP, IMAGED: NEGATIVE FOR SQUAMOUS INTRAEPITHELIAL [...] Recently Relevant to Health Maintenance Care Teams Stereo Compiler Relationship Specialty Start Date End Date Maryann Westbrook MD [address] [facility] MEDICAL [facility] [place] [place] [address] PCP - General Internal Medicine 01/10/21
[2024-12-18 07:43] LABS: MANUAL DIFF FLAG NO
[2024-12-18 07:54] LABS: Basophils Percent Auto 0.6 % (0-2); Eosinophils Absolute Auto 0.1 X10*3/uL (0.0-0.4); Eosinophils Percent Auto 2.6 % (0-4); Hematocrit 43.4 % (37.0-47.0); Hemoglobin 14.7 g/dl (12.0-16.0); Imm Gran Abs Auto 0.02 X10*3/uL (0.00-0.03); Imm Gran Pct Auto 0.4 % (0.0-0.4); Lymphocytes Absolute Auto 1.4 X10*3/uL (1.2-4.9); Lymphocytes Percent Auto 30.3 % (20-40); Mean Corpuscular HGB Conc 33.9 g/dl (31.0-35.0); Mean Corpuscular Hemoglobin 30.2 pg (27.0-33.0); Mean Corpuscular Volume 89.1 fL (80.0-98.0); Monocytes Absolute Auto 0.4 X10*3/uL (0.1-1.2); Monocytes Percent Auto 8.2 % (2-11); Neutrophils Absolute Auto 2.7 x10*3/uL (2.0-8.3); Neutrophils Percent Auto 57.9 % (45-73); Platelet Count 275 X10*3/uL (160-400); Red Blood Count 4.87 X10*6/uL (4.20-5.50); Red Cell Distribution Width 11.6 % (11.0-16.0); White Blood Count 4.6 X10*3/uL (4.8-10.8)
[2024-12-18 08:33] LABS: Alanine Aminotransferase 22 U/L (0-31); Albumin Level 4.6 g/dL (3.5-5.0); Alkaline Phosphatase 85 U/L (39-117); Anion Gap 12 (12-20); Aspartate Amino Transferase 22 U/L (5-31); Bilirubin Total 0.5 mg/dL (0.0-1.0); Blood Urea Nitrogen 19 mg/dL (9-16); Calcium 9.6 mg/dL (8.4-10.2); Carbon Dioxide 29 mmol/L (22-29); Chloride 106 mmol/L (96-108); Cholesterol 255 mg/dL (<200); Estimated Glomerular Filt Rate 57; Glucose Random 96 mg/dL (60-115); HDL Cholesterol 66 mg/dL (>40); LDL Cholesterol Calculated 168 mg/dL (<100); Potassium 4.1 mmol/L (3.3-5.1); Sodium 143 mmol/L (135-145); Total Protein 7.3 g/dL (6.5-8.0); Triglycerides 107 mg/dL (<150)
[2024-12-18 08:50] LABS: Free T4 (Free Thyroxine) 0.97 ng/dL (0.71-1.85); TSH reflex Free T4 2.02 uIU/mL (0.32-4.0); Vitamin D 25-OH Total 31.7 ng/mL (>30)
[2024-12-18 08:55] LABS: Folate 14.5 ng/mL (> or = 4.0); Vitamin B12 532 pg/mL (200-900)
== END 2024-12-18 07:34 | disposition home or self-care (01) ==
LOC: HO.LAB 07:33
DX: Z00.00 Encounter for general adult medical examination without abnormal findings (principal); Z13.220 Encounter for screening for lipoid disorders; Z13.6 Encounter for screening for cardiovascular disorders
CPT/HCPCS: 36415; 80053; 80061; 82306; 82607; 82746; 84439; 84443; 85025

== ENCOUNTER 2025-02-04 14:47 | Outpatient (AMB) | payer OTHER, SELFPAY ==
--- NOTE | 2025-02-04 14:49 | MHC.PC.OV ---
Vital Signs 02/04/25 14:50 Height 5 ft 7 in Weight 148 lb 2 oz BMI 23.2 BP 116/78 Blood Pressure Location Lt brachial Position Sitting Oxygen Delivery Method Room Air Intake Visit Reasons: annual exam Product Management Analyst Required: No Accompanied by: Self / Same As Patient Allergies No Known Allergies (No Known Allergies*) Allergy (Verified 02/04/25 15:17) Medication List - Last Reconciled 02/04/25 by Nia Lopez PA-C cefuroxime axetil 500 mg PO BID 7 days ondansetron 4 mg PO Q6H Tobacco use date assessed: 02/04/25 Dental Screening Dental Screen Date: 02/04/25 Did you have a dental visit in the last 12 months?: Yes Did you have a dental problem in the last 6 months where you did not have access to dental care?: No Was dental information given to patient?: Patient has dentist HPI annual exam HPI Details 59-year-old female with past medical history of kidney stones last seen 10/2024 coming in for annual exam.? Presenting for a wellness visit and management of urinary tract infections and hypercholesterolemia. The patient experiences recurrent UTIs, particularly post-coital, with a notable foul smell but no pain or burning. She manages these with [id number] UTI kits and increased fluid intake. Lab results show elevated cholesterol levels, with LDL at 168 mg/dL. The patient's diet includes high butter and egg consumption, contributing to her cholesterol levels. The patient has a history of kidney stones, which she associates with her recurrent UTIs. mammogram: UTD through [facility] Colonoscopy: last done 7 years ago pap smear: UTD through [facility]: [facility] Medical History Benign breast lumps Surgical History History of lumpectomy History of cholecystectomy Family History Father Colon cancer, Onset Age: 70 Paternal Aunt Breast cancer Social History Housing: House Alcohol intake: current Alcohol intake frequency: holidays/special occasions only Patient Tobacco Use Status: Never used Tobacco e-Cigarette/Vaping Use: Never Used Second Hand Smoke Exposure: No service: No Current occupational status: employed Current occupation: Medical Assist Cognitive needs: No Hearing needs: No Vision needs: Yes (Glasses) Questionnaire PHQ-9 Over the last 2 weeks, how often have you been bothered by any of the following problems? 1. Little interest or pleasure in doing things: not at all 2. Feeling down, depressed, or hopeless: not at all 3. Trouble falling or staying asleep, or sleeping too much: not at all 4. Feeling tired or having little energy: not at all 5. Poor appetite or overeating: not at all 6. Feeling bad about yourself - or that you are a failure or have let yourself or your family down: not at all 7. Trouble concentrating on things, such as reading the newspaper or watching television: not at all 8. Moving or speaking so slowly that other people could have noticed. Or the opposite - being so fidgety or restless that you have been moving around a lot more than usual: not at all 9. Thoughts that you would be better off or of hurting yourself in some way: not at all Total score: 0 Depression Screening Interpretation: Negative Depression Screening Done: Yes 72232 - PHQ-9 Billing: Yes Source: Developed by Drs. Nitesh Dow, Apryl Castaneda, Sukhwinder Reyes and colleagues, with an educational kendell from [employer]. Thrive Questionnaire Date Thrive assessed: 02/04/25 I am a: Patient What is your living situation today?: I have a steady place to live Within the past 12 months, did the food you bought not last and you didn't have the money to get more?: Never true Within the past 12 months, did you worry whether your food would run out before you got money to buy more?: Never true Do you have trouble paying for medicines?: No Do you have trouble getting transportation to medical appointments?: No Do you have trouble paying your heating and electricity bill?: No Do you have trouble taking care of your child, family member or friend?: No Do you have trouble with day-to-day activities such as bathing, preparing meals, shopping, managing finances, etc.?: No Are you currently unemployed and looking for a job?: No Are you interested in more education?: No Please select the resources that you would like help with: None Currently or been in a relationship where the following occur: No concerns reported THRIVE Score: 0 DANG-7 AMB Questionnaire DANG-7 Date DANG - 7 assessed: 02/04/25 Source: Developed by Drs. Nitesh Dow, Apryl Castaneda, Sukhwinder Reyes and colleagues, with an educational kendell from [employer]. Review of Systems Const Denies body aches, Denies fatigue, Denies fever(s), Denies frequent falls, Denies headache(s) and Denies weakness Eyes Details: reading glasses Reports no additional complaints and Denies change in vision ENT Denies dysphagia, Denies dizziness, Denies facial pain, Denies headache(s), Denies nasal congestion and Denies odynophagia Card Denies chest pain, Denies syncope, Denies irregular heart rhythm, Denies leg edema, Denies lightheadedness and Denies dyspnea Resp Denies cough and Denies dyspnea GI Denies abdominal pain, Denies constipation, Denies dysphagia, Denies dyspepsia, Denies diarrhea, Denies nausea, Denies odynophagia and Denies vomiting Denies urinary frequency, Denies dysuria, Denies urinary hesitancy and Denies urinary urgency Musc Denies back pain and Denies myalgias Skin/Breast Reports system reviewed and no additional complaints, except as documented Neuro Denies dizziness, Denies syncope, Denies frequent falls, Denies headache(s) and Denies weakness Psych Reports no additional complaints Endo Denies fatigue Physical exam (Primary Care) Vital Signs: Last Vital Signs BP 116/78 02/04/25 14:50 Oxygen Delivery Method Room Air 02/04/25 14:50 BMI result Body Mass Index 23.2 Tobacco/Smoking Status: Tobacco use Status Tobacco use date assessed 02/04/25 02/04/25 14:55 Patient Tobacco Use Status Never used Tobacco 02/04/25 14:50 e-Cigarette/Vaping Use Never Used 02/04/25 14:50 PHQ-9: PHQ-9 Score PHQ-9: Total score 0 02/04/25 15:04 Depression Screening Interpretation: Negative Thrive Assessment: Date of Thrive Assessment Date Thrive assessed 02/04/25 02/04/25 14:50 Currently or been in a relationship where the following occur: No concerns reported Const General: cooperative, healthy appearing, comfortable and no acute distress Orientation/consciousness: [facility]: Yes normocephalic Ears: hearing grossly normal bilaterally, external ears normal, TM's normal bilaterally and EAC's normal General nose exam: Normal external nose present Face and sinus: Yes normal facial exam and Yes sinuses nontender Mouth: Normal oral and palatal mucosa present and tongue normal Throat: Yes posterior oropharynx normal Eyes General: appearance normal, both eyes and all related structures Conjunctivae: conjunctivae normal Pupils: Equal, round and reactive pupils present EOM: EOMs intact bilaterally and No Nystagmus present Neck Neck: Yes normal visual inspection, Yes full ROM and Yes no lymphadenopathy Chest Chest palpation & inspection: normal inspection of the chest Resp Effort & Inspection: normal respiratory effort Auscultation: clear to auscultation bilaterally, no crackles, no rales, no rhonchi, no wheezes and breath sounds present Cardio Rate: regular rate Rhythm: regular rhythm Peripheral pulses: radial pulses present and dorsalis pedis present GI Inspection: Yes normal to inspection and No Abdominal wall edema Palpation (GI): Soft to palpation, not firm and nontender Auscultation: normal bowel sounds Rectal Exam - Female: deferred General: Yes no CVA tenderness Back/Spine/Pelvis Back: no CVA tenderness Skin General skin exam: no rashes or lesions noted Neuro General: patient oriented x3 Cranial nerves: Yes Equal, round and reactive pupils present, Yes Midline tongue present, Yes Ability to bilaterally elevate shoulders present and No Nystagmus present Gait exam (Neuro): Normal gait present Extrem General: Yes normal to inspection, Yes full ROM, No no pedal edema and No edema Psych Speech and movement: Normal speech and movement present Affect: normal affect Insight: Good insight present (Psych) Judgement: Good judgement present (Psych) Coding Level of Care Code Est Pt Prev Care 40-64y(17197) Diagnoses Annual physical exam Z00.00 Loose stools R19.5 Nephrolithiasis N20.0 Recurrent UTI N39.0 Hypercholesterolemia E78.00 Additional Codes PHQ-9 - 86990 - PHQ-9 Billing: Yes ([id number]) Assessment & Plan Assessment & Plan (1) Annual physical exam: Code(s): Z00.00 - Encounter for general adult medical examination without abnormal findings Category: Medical Plan: Patient is up-to-date on all recommended routine screenings and vaccinations for her age. Healthy diet and regular exercise is encouraged. Blood work is up-to-date and has been reviewed with the patient. Given normal exam and blood work reviewed plan to follow up yearly or sooner as needed. (2) Loose stools: Code(s): R19.5 - Other fecal abnormalities Category: Medical Plan: Appointment on Friday with GI for pre-colonoscopy. Resolved after recent antibiotic use. (3) Nephrolithiasis: Code(s): N20.0 - Calculus of kidney Category: Medical Plan: Patient follows with [facility] Urology plan to request these notes. Advised to stay well hydrated. (4) Recurrent UTI: Code(s): N39.0 - Urinary tract infection, site not specified Category: Medical Plan: Patient would like to switch Urology to [place] and referral was placed today. She does have frequent UTIs usually after intercourse, I discussed proper hygiene and advised patient to speak to Urology about possible prophylactic antibiotics after intercourse. (5) Hypercholesterolemia: Code(s): E78.00 - Pure hypercholesterolemia, unspecified Category: Medical Plan: Avoid foods that are high in cholesterol such as red meat, fried foods, eggs and baked goods. Triglyceride goal of less than 150 and LDL goal of less than 130. Patient was given cholesterol resources today plan to repeat labs in 3 months. Consider medication if dietary and lifestyle is not effective. Plan The patient will be referred to urology for further management of recurrent urinary tract infections, with consideration for prophylactic antibiotics post-coital to prevent future episodes. Dietary modifications are recommended to address hypercholesterolemia, including reducing intake of butter and egg yolks. Follow-up cholesterol testing is planned in three months to assess the effectiveness of dietary changes. The patient is advised to maintain regular physical activity, such as walking for 20-30 minutes daily, to support cardiovascular health and cholesterol management. Preventative care measures include a scheduled colonoscopy and maintaining up-to-date mammograms, Pap smears, and vaccinations. This note was constructed using voice recognition software. While every effort has been made to ensure accuracy and pathology secretary/transcriptionist, still areas may have been included sometimes these areas may affect the content or meeting of the given symptoms. Total time spent caring for the patient today was 30 minutes. This includes time spent before the visit reviewing the chart, time spent during the visit, and time spent after the visit and documentation. Patient was informed and verbally consented to the use of an ambient scribe for clinic note documentation during this visit. Orders: Orders Lipid Panel 3 Months E78.00 - Pure hypercholesterolemia, unspecified Referrals Urology Referral N20.0 - Calculus of kidney, N39.0 - Urinary tract infection, site not specified Medications: Discontinued ondansetron Discontinued Reason: Patient no longer taking 4 mg PO Q6H 14 tabs 0RF cefuroxime axetil Discontinued Reason: Patient no longer taking 500 mg PO BID 7 days 14 tabs 0RF
[2025-02-04 14:50] VITALS: BP 116/78; BMI 23.2
--- OUTSIDE RECORDS SUMMARY | 2025-02-04 14:50 | XMS_ITS | Clinical Summary ---
Author Organization [facility] Address [address] [place] [address] Care Team Providers Care Drafter Mechanical Name Role Phone Maryann Westbrook MD Primary Care Provider [phone] Surgical History Surgery Date Site/Laterality Comments OTHER SURGICAL HISTORY PROCEDURE: ---- OTHER ----; COMMENT: breast biopsy/benign WISDOM TOOTH EXTRACTION PROCEDURE: HISTORICAL WISDOM TEETH EXTRACTION COLONOSCOPY 12/19/2015 PROCEDURE: HISTORICAL COLONOSCOPY; COMMENT: adenoma; repeat in 5 yrs OTHER SURGICAL HISTORY 01/11/2021 N/A PROCEDURE: SC LAPS SURG CHOLECSTC W/EXPL COMMON DUCT; COMMENT: lap urbano with cholangiogram and CBD exploration - Dr. Christopher Blair [facility] BREAST BIOPSY Right PROCEDURE: BX BREAST; PERC [...] Left breast, US guided core biopsy done, [facility] for repeat mammogram 02/24/2021 Hydronephrosis DX:Hydronephrosi [...] Upcoming Encounters Date Type Department Care Team ([facility] st Contact Info) Description 05/13/2025 2:00 PM EDT Appointment Radiology Department [address] [phone] Health Maintenance Due Date Last Done Comments Hepatitis B Vaccines (1 of 3 - 19+ 3-dose series) 1986 Pneumococcal Vaccine: 50+ Years (1 of 2 - PCV) 1986 Zoster [...] Screening: Pap Smear 08/15/2024 08/15/2023 Influenza Vaccine (#1) 2025 04/02/2021, 2014 Breast Cancer Screening 04/23/2026 04/23/20 24, 04/23/2024, [...] interpreted with the aid of computer-aided detection. Comparison is made with 04/18/2023 and as far back as 02/16/2020. Breast parenchyma is composed of scattered fibroglandular densities. Stable bilateral nodularity. No new suspicious mass, architectural distortion, or suspicious calcifications. Impression: No mammographic evidence of malignancy. BI-RADS 2-benign [address] [address] Procedure Note Pati Blevins MD - 06/14/2024 [...] mammographic evidence of malignancy. BI-RADS 2-benign [address] [address] us Carina Indra PA IMG XR PROCEDURES Final Result * Pap smear (08/15/2023) 08/15/2023 Narrative HISTORICAL TESTING LAB RESULTING AGENCY - 08/29/2023 4:46 PM EST [id number] THINPREP PAP, IMAGED: NEGATIVE FOR SQUAMOUS INTRAEPITHELIAL LESION AND MALIGNANCY . REACTIVE CELLULAR CHANGES. MICHOACANO MEDRANO M.D. , PATHOLOGIST (CASE ELECTRONICALLY SIGNED 08 29 2023) RESULT OF APTIMA HIGH RISK HPV ASSAY: HIGH RISK HPV: NEGATIVE (SEROTYPES 16,18,31,33,35,39,45,51,52,56,58,59,66,68) COMPLETED ON 2023-08-20 ADEQUACY: SATISFACTORY ENDOCERVICAL/TRANSFORMATION ZONE COMPONENT PRESENT. SOURCE: THINPREP PAP HPV ANY DX: REFLEX 16 AND 18, CERVICAL, IMAGED CLINICAL INFORMATION: HPV ANY DIAGNOSIS. LMP 11/27/2016, PAP HX NEGATIVE, [Z01.419] us Jessica BRYAN LAB CYTOLOGY ORDERABLES Final R esult HISTORICAL TESTING LAB RESULTING AGENCY from Last 3 Months or Most Recently Relevant to Health Maintenance Care Teams Drafter Mechanical Relationship Specialty Start Date End Date Maryann Westbrook MD [address] [place] [address] PCP - General Internal Medicine 01/10/21
== END 2025-02-04 15:40 | disposition home or self-care (01) ==
LOC: HO.HMCH 14:47
DX: Z00.00 Encounter for general adult medical examination without abnormal findings (principal); R19.5 Other fecal abnormalities; N20.0 Calculus of kidney; N39.0 Urinary tract infection, site not specified; E78.00 Pure hypercholesterolemia, unspecified

== ENCOUNTER → 2025-02-04 14:47 | Outpatient (BNVA) | payer OTHER, SELFPAY | DX: Z00.00 Encounter for general adult medical examination without abnormal findings (principal); R19.5 Other fecal abnormalities; N20.0 Calculus of kidney; N39.0 Urinary tract infection, site not specified; E78.00 Pure hypercholesterolemia, unspecified; Z13.31 Encounter for screening for depression | CPT/HCPCS: 96127 ==

== ENCOUNTER 2025-02-11 15:31 | Outpatient (AMB) | payer OTHER, SELFPAY ==
--- OUTSIDE RECORDS SUMMARY | 2025-02-11 15:33 | XMS_ITS | Clinical Summary ---
Author Organization [facility] Address [address] [place] [address] Care Team Providers Care Corn Picker Name Role Phone Maryann Westbrook MD Primary Care Provider [phone] Surgical History Surgery Date Site/Laterality Comments OTHER SURGICAL HISTORY PROCEDURE: ---- OTHER ----; COMMENT: breast biopsy/benign WISDOM TOOTH EXTRACTION PROCEDURE: HISTORICAL WISDOM TEETH EXTRACTION COLONOSCOPY 12/19/2015 PROCEDURE: HISTORICAL COLONOSCOPY; COMMENT: adenoma; repeat in 5 yrs OTHER SURGICAL HISTORY 01/11/2021 N/A PROCEDURE: CA LAPS SURG CHOLECSTC W/EXPL COMMON DUCT; COMMENT: lap urbano with cholangiogram and CBD exploration - Dr. Christopher Blair [facility] BREAST BIOPSY Right PROCEDURE: BX BREAST; [...] Left breast, [facility]24[facility]2021 Hydronephrosis DX:Hydronephrosi [...] Upcoming Encounters Date Type Department Care Team ([facility] st Contact Info) Description 05/13/2025 2:00 PM EDT Appointment Radiology Department [address] [phone] Health Maintenance Due Date Last Done Comments [...] Panel) 06/29/2022 Colorectal Cancer Screening: Colonoscopy 06/29/2022 HIV Screening 06/29/2022 Hepatitis C Screening 06/29/2022 Social Influencers of Health Screening 06/29/2022 Depression Screening 07/21/2024 Cervical Cancer Screening: Pap Smear 08/15/2024 08/15/2023 [...] No mammographic evidence of malignancy. BI-RADS 2-benign [address] [address] Procedure Note Pati Blevins MD - 06/14/2024 [...] No mammographic evidence of malignancy. BI-RADS 2-benign [address] [address] [place] Carina Indra PA IMG XR PROCEDURES Final Result * Pap smear (08/15/2023) 08/15/2023 Narrative HISTORICAL TESTING LAB RESULTING AGENCY - 08/29/2023 4:46 PM EST [id number] THINPREP PAP, IMAGED: NEGATIVE FOR SQUAMOUS INTRAEPITHELIAL [...] Recently Relevant to Health Maintenance Care Teams Corn Picker Relationship Specialty Start Date End Date Maryann Westbrook MD [address] [facility] [place] [address] PCP - General Internal Medicine 01/10/21
--- OUTSIDE RECORDS SUMMARY | 2025-02-11 15:33 | XMS_ITS ---
Author Name [facility] Organization Unknown Care Team Organization Name Specialty Phone Email Start Date End Da benson [facility] Carina Burrell Primary Care 05/28/2022 03/08/20 24
--- NOTE | 2025-02-11 15:34 | MHC.OFFVIS ---
Vital Signs 02/11/25 15:35 Height 5 ft 7 in Weight 147 lb BMI 23.0 BP 117/69 Blood Pressure Location Lt brachial Position Sitting Pulse 92 Pulse Oximetry (%) 95 Oxygen Delivery Method Room Air Intake Visit Reasons: colo screening Intake Note: Patient new consult for 2nd pre Colonoscopy screening. First Colonoscopy was at [facility]. Patient denies any GI issues for today. Marine Geologist Required: No Accompanied by: Self / Same As Patient Allergies No Known Allergies (No Known Allergies*) Allergy (Verified 02/11/25 15:34) Medication List - Last Reconciled 02/11/25 by Latha Dahl CNP No Known Home Meds HPI HPI colo screening: Details: Patient is a 59-year-old female with PMH of hyperlipidemia. Referred by PCP for pre colonoscopy screening. Dian's initial colonoscopy was conducted seven years ago at [facility] for routine screening. She reports experiencing episodes of soft stool since August, without diarrhea, bloating, or pain initially. This persisted for about two and a half months. In November, she developed diarrhea accompanied by bloating, discomfort, and vomiting, coinciding with a urinary tract infection (UTI) for which she sought emergency care. Antibiotics prescribed for the UTI coincidentally resolved her gastrointestinal symptoms, and Dian has been symptom-free since December. Currently denies return of nausea, vomiting or diarrhea. No heartburn or swallowing difficulties. She notes good appetite and stable weight. She also has a history of a longstanding growth near the anal area, which is asymptomatic and no change in size. Patient denies: fever/chills, appetite changes, pyrosis, regurgitation,dysphasia, unintentional wt loss, ab pain or melena/hematochezia. Social hx: -Consumes alcohol socially, approximately one mixed drink per weekend. -denies recreational drug use -non-smoker - family hx as below -denies personal hx of CA -denies significant cardiopulmonary history -tolerated anesthesia in the past without difficulty. [facility] Medical History (Updated 02/11/25 @ 16:00 by Latha Dahl CNP) Skin tag of anus Colon cancer screening Benign breast lumps Surgical History History of lumpectomy History of cholecystectomy Family History Father Colon cancer, Onset Age: 70 Paternal Aunt Breast cancer Social History Housing: House Alcohol intake: current Alcohol intake frequency: holidays/special occasions only Patient Tobacco Use Status: Never used Tobacco e-Cigarette/Vaping Use: Never Used Second Hand Smoke Exposure: No service: No Current occupational status: employed Current occupation: Medical Assist Cognitive needs: No Hearing needs: No Vision needs: Yes (Glasses) Review of Systems Const Reports as per HPI ENT Reports as per HPI Card Reports as per HPI Resp Reports as per HPI GI Reports as per HPI Reports as per HPI Physical Exam Vital Signs: Oxygen Delivery Method Room Air 02/11/25 15:35 BMI result Body Mass Index 23.0 Const General: healthy appearing, no acute distress and well developed Nutritional Appearance: average body habitus Orientation/consciousness: patient oriented x3 HEENT Head: Yes normal to inspection, Yes normocephalic and Yes atraumatic Face and sinus: Yes normal facial exam Eyes General: appearance normal, both eyes and all related structures Neck Neck: Yes normal visual inspection Resp Effort & Inspection: normal respiratory effort, able to speak in complete sentences, no tracheal deviation and symmetric chest movement GI Inspection: No distended Rectal Exam - Female: visual inspection normal (with skin tag), normal sphincter tone, No Anal fissure(s) present, No hemorrhoids, No Excoriation present (GI), No mass and No tenderness Neuro General: patient oriented x3 Gait exam (Neuro): Normal gait present Psych Appearance: grossly normal Mental Status: mental status grossly normal Speech and movement: Normal speech and movement present Affect: normal affect Attitude: cooperative Thought process: Normal thought process present Thought content: Normal thought content present Insight: Good insight present (Psych) Judgement: Good judgement present (Psych) Assessment & Plan Assessment & Plan (1) Colon cancer screening: Code(s): Z12.11 - Encounter for screening for malignant neoplasm of colon Category: Medical Plan: Due for routine screening colonoscopy. FDR with CRC. Short lived GI symptoms that resolved after course of cefuroxime Rx'd for UTI during 11/30/24 ER visit. Now asymptomatic with normal stool output. Medications: -prescriptions for laxative tablets and MiraLax sent to pharmacy; instructions for Gatorade purchase and clear liquid diet given. Patient educated on scheduling process, procedure preparation, including avoiding certain foods and ensuring clear liquid intake Advised on necessity for ride post-procedure due to sedation. (2) Skin tag of anus: Code(s): K64.4 - Residual hemorrhoidal skin tags Category: Medical Plan: Asymptomatic Perianal Skin Tag Lifestyle Modifications: Monitor for changes in size or symptoms. Follow-Up: Contact PCP or GI if symptomatic for potential referral to dermatology or Gen surgery for removal. Plan Follow-up after colonoscopy as warranted or sooner as needed Time: I spent a total of 30 minutes on the date of encounter which includes: Preparing to see the patient (reviewed previous documentation, test results and medical history) Performing a medically appropriate exam and/or evaluation Ordering medications, tests, and procedures Documenting clinical information in the health record Medications: New bisacodyl (Dulcolax (bisacodyl)) Take four tablets per colonoscopy instructions 20 mg (4 x 5 mg) PO ONCE 4 tabs 0RF 1 day polyethylene glycol 3350 (Miralax) per colonoscopy prep instructions 238 grams PO ONCE 238 grams 0RF Coding Level of Care Code New Pt New Pt Level 3 (31201) Patient Type New Diagnoses Colon cancer screening Z12.11 Skin tag of anus K64.4
[2025-02-11 15:35] VITALS: BP 117/69; PULSE 92; O2SAT 95; BMI 23.0
== END 2025-02-11 15:54 | disposition home or self-care (01) ==
LOC: HO.HGI 15:32
PROVIDERS: Visit Provider Nurse Practitioner Family
DX: K64.4 Residual hemorrhoidal skin tags (principal); Z01.818 Encounter for other preprocedural examination; Z12.11 Encounter for screening for malignant neoplasm of colon
CPT/HCPCS: 99203

== ENCOUNTER 2025-04-15 15:17 | Outpatient (REF) | payer OTHER, SELFPAY | END 2025-04-15 15:18 | disposition home or self-care (01) | LOC: HO.LAB 15:17 | PROVIDERS: Visit Provider Urology | DX: N20.0 Calculus of kidney (principal); N39.0 Urinary tract infection, site not specified | CPT/HCPCS: 81003; 87086; 87088; 87186 ==

== ENCOUNTER 2025-04-15 15:17 | Outpatient (AMB) | payer OTHER, SELFPAY ==
--- NOTE | 2025-04-15 15:22 | MHC.OFFVIS ---
Intake Visit Reasons: Kidney stone/second opinion Intake Note: New Patient is present for 2nd opinion for Kidney stones Urology Rx: none Blood Thinners:none Imaging completed: XRAY 11/26/24 Crystal Grinder Required: No Accompanied by: Self / Same As Patient Allergies No Known Allergies (No Known Allergies*) Allergy (Verified 04/15/25 15:23) HPI Comments Details: Dian is a pleasant female. She is a patient of . She is seen for the following urologic conditions - recurrent UTI - nephrolithiasis Reviewed stone history Plan Uro risk Discussed positive UA We will treat and culture be performed Nephrolithiasis Extensive history in 2020 of right-sided staghorn 2.2 cm Managed with UGWNE Notes reviewed Unable to find composition of stone Imaging - 02/11 KUB 5mm right lower pole stone Recurrent urinary tract infections Positive today Often has infection without symptoms Thinks UTI related to postcoital Trial of on demand suppression trimethoprim Treat current infection with Bactrim Three-month follow-up ON LICENSE OF [facility] Medical History (Updated 02/11/25 @ 16:00 by Latha Dahl CNP) Skin tag of anus Colon cancer screening Benign breast lumps Surgical History History of lumpectomy History of cholecystectomy Family History Father Colon cancer, Onset Age: 70 Paternal Aunt Breast cancer Social History Housing: House Alcohol intake: current Alcohol intake frequency: holidays/special occasions only Patient Tobacco Use Status: Never used Tobacco e-Cigarette/Vaping Use: Never Used Second Hand Smoke Exposure: No service: No Current occupational status: employed Current occupation: Medical Assist Cognitive needs: No Hearing needs: No Vision needs: Yes (Glasses) Review of Systems Const Denies chills and Denies fever(s) Card Reports no additional complaints and Denies syncope Resp Denies cough GI Denies abdominal pain and Denies heartburn Reports as per HPI and Denies change in libido Neuro Denies syncope Psych Denies change in libido Endo Denies change in libido Physical Exam Const General: cooperative, healthy appearing, comfortable and no acute distress Orientation/consciousness: patient oriented x3 HEENT Face and sinus: Yes normal facial exam Mouth: moist mucous membranes Neck Neck: Yes normal visual inspection, Yes full ROM and Yes trachea midline Chest Chest palpation & inspection: normal inspection of the chest Resp Effort & Inspection: normal respiratory effort, able to speak in complete sentences and no respiratory distress GI Inspection: Yes normal to inspection Back/Spine/Pelvis Cervical Spine: normal cervical lordosis Thoracic/Lumbar Spine: thoracic and lumbar spine normal to inspection Skin General skin exam: no rashes or lesions noted Neuro General: patient oriented x3, gait normal, tone normal and moves all extremities Extrem General: Yes normal to inspection and Yes capillary refill normal Results AMB Urinalysis, Automated UA Leukoctes 125 Adin/uL Last Edit by Precious Cha MA on 04/15/25 16:01 UA Nitrite Positive Last Edit by Precious Cha MA on 04/15/25 16:01 UA Urobilinogen 3.5 mg/dL Last Edit by Precious Cha MA on 04/15/25 16:01 UA Protein 15 mg/dL Last Edit by Precious Cha, BERNABE on 04/15/25 16:01 UA pH 5.5 Last Edit by Precious Cha, BERNABE on 04/15/25 16:01 UA Blood 80 Cassius/uL Last Edit by Precious Cha, BERNABE on 04/15/25 16:01 UA Specific [place] 1.025 Last Edit by Precious Cha MA on 04/15/25 16:01 UA Ketone Negative Last Edit by Precious Cha MA on 04/15/25 16:01 UA Bilirubin 0 mg/dL Last Edit by Precious Cha MA on 04/15/25 16:01 UA Glucose 0 mg/dL Last Edit by Precious Cha MA on 04/15/25 16:01 Assessment & Plan Assessment & Plan (1) Recurrent UTI: Code(s): N39.0 - Urinary tract infection, site not specified Category: Medical (2) Nephrolithiasis: Code(s): N20.0 - Calculus of kidney Category: Medical Plan Treat current UTI Add suppression Complete Urorisk Three-month follow-up Orders: Orders URORISK Today N20.0 - Calculus of kidney Urine Culture Today N20.0 - Calculus of kidney, N39.0 - Urinary tract infection, site not specified AMB Urinalysis Automated Today N20.0 - Calculus of kidney, N39.0 - Urinary tract infection, site not specified Medications: New sulfamethoxazole-trimethoprim 800-160 mg (Bactrim DS) 1 tab PO BID 10 tabs 0RF 5 days N39.0 - Urinary tract infection, site not specified trimethoprim For use after intercourse 100 mg PO ONCE PRN 30 tabs 1RF Recurrent UTI 30 days N39.0 - Urinary tract infection, site not specified Patient Instructions: This note is constructed using voice recognition software. While every effort has been made to ensure accuracy entry level machine operator errors may have been included. Imaging studies, laboratory and physical exam results were discussed and reviewed in detail. No major barriers to patient understanding were identified. An opportunity to ask questions regarding the treatment plan was provided. All questions were answered. The patient expressed understanding and agreement with the above treatment plan. The patient is aware they should contact our office by phone for worsening of their current condition or the appearance of new urologic symptoms. Compliance is encouraged with any medications and followup testing that is ordered. It is a privilege to participate in the urologic care of your patient. If you have any questions or concerns regarding treatment for the above conditions, or other urologic issues, please do not hesitate to contact me. The office telephone contact is [phone]. Sincerely, Dr Conner Anna MD, [facility] - Urology Compassionate Specialist Care for the Genitourinary System Coding Level of Care Code New Pt Level 4 (25786) Diagnoses Recurrent UTI N39.0 Nephrolithiasis N20.0
--- OUTSIDE RECORDS SUMMARY | 2025-04-15 15:45 | XMS_ITS | Clinical Summary ---
Author Organization [facility] Address [address] [place] [address] Care Team Providers Care Regulatory Compliance Manager Name Role Phone Maryann Westbrook MD Primary Care Provider [phone] Surgical History Surgery Date Site/Laterality Comments OTHER SURGICAL HISTORY PROCEDURE: ---- OTHER ----; COMMENT: breast biopsy/benign WISDOM TOOTH EXTRACTION PROCEDURE: HISTORICAL WISDOM TEETH EXTRACTION COLONOSCOPY 12/19/2015 PROCEDURE: HISTORICAL COLONOSCOPY; COMMENT: adenoma; repeat in 5 yrs OTHER SURGICAL HISTORY 01/11/2021 N/A PROCEDURE: [place] LAPS SURG CHOLECSTC W/EXPL COMMON DUCT; COMMENT: lap urbano with cholangiogram and CBD exploration - Dr. Christopher Blair [facility] BREAST BIOPSY Right PROCEDURE: BX BREAST; PERC [...] Left breast, US guided core biopsy done, [facility] for repeat mammogram 02/24/2021 Hydronephrosis DX:Hydronephrosi s; [...] Upcoming Encounters Date Type Department Care Team ([facility] st Contact Info) Description 05/13/2025 2:00 PM EDT Appointment Radiology Department [address] [phone] Health Maintenance Due Date Last Done Comments [...] 04/23/20 24, 04/23/2024, 04/18/2023, Additional history exists RSV Immunization Adult Patients (1 - 1-dose 75+ series) 2042 HIB Vaccines Aged Out No longer eligi [...] No mammographic evidence of malignancy. BI-RADS 2-benign [address] [address] Procedure Note Pati Blevins MD - 06/14/2024 [...] No mammographic evidence of malignancy. BI-RADS 2-benign [address] [id number] [place] Carina Indra HENRY IMG XR PROCEDURES Final Result * Pap smear (08/15/2023) 08/15/2023 Narrative HISTORICAL TESTING LAB RESULTING AGENCY - 08/29/2023 4:46 PM EST [id number] THINPREP PAP, IMAGED: NEGATIVE FOR SQUAMOUS INTRAEPITHELIAL [...] DIAGNOSIS. LMP 11/27/2016, PAP HX NEGATIVE, [Z01.419] Jessica Magallanes [facility] LAB CYTOLOGY ORDERABLES Final R esult HISTORICAL TESTING LAB RESULTING AGENCY from Last 3 Months or Most Recently Relevant to Health Maintenance Insurance [facility] Care Teams Regulatory Compliance Manager Relationship Specialty Start Date End Date Maryann Westbrook MD [address] [place] [address] PCP - General Internal Medicine 01/10/21
== END 2025-04-15 15:45 | disposition home or self-care (01) ==
LOC: HO.HUSH 15:18
PROVIDERS: Visit Provider Urology
DX: N39.0 Urinary tract infection, site not specified (principal); N20.0 Calculus of kidney
CPT/HCPCS: 99204

== ENCOUNTER 2025-04-16 07:36 | Outpatient (REF) | payer OTHER, SELFPAY ==
--- OUTSIDE RECORDS SUMMARY | 2025-04-16 07:39 | XMS_ITS | Clinical Summary ---
Author Organization [facility] Address [address] [place] [address] Care Team Providers Care Aerospace Manager Name Role Phone Maryann Westbrook MD Primary Care Provider [phone] Surgical History Surgery Date Site/Laterality Comments OTHER SURGICAL HISTORY PROCEDURE: ---- OTHER ----; COMMENT: breast biopsy/benign WISDOM TOOTH EXTRACTION PROCEDURE: HISTORICAL WISDOM TEETH EXTRACTION COLONOSCOPY 12/19/2015 PROCEDURE: HISTORICAL COLONOSCOPY; COMMENT: adenoma; repeat in 5 yrs OTHER SURGICAL HISTORY 01/11/2021 N/A PROCEDURE: [place] LAPS SURG CHOLECSTC W/EXPL COMMON DUCT; COMMENT: lap urbano with cholangiogram and CBD exploration - Dr. Christopher Blair [facility] BREAST BIOPSY Right PROCEDURE: BX BREAST; PERC [...] Left breast, US guided core biopsy done, [facility] for repeat mammogram 02/24/2021 Hydronephrosis DX:Hydronephrosi [...] Upcoming Encounters Date Type Department Care Team ([facility] st Contact Info) Description 05/13/2025 2:00 PM EDT Appointment Radiology Department [address] [phone] Health Maintenance Due Date Last Done Comments [...] No mammographic evidence of malignancy. BI-RADS 2-benign [address] [address] Procedure Note Pati Blevins MD - 06/14/2024 [...] No mammographic evidence of malignancy. BI-RADS 2-benign [address] [id number] [place] Carina Indra HENRY IMG XR PROCEDURES Final Result * Pap smear (08/15/2023) 08/15/2023 Narrative HISTORICAL TESTING LAB RESULTING AGENCY - 08/29/2023 4:46 PM EST [id number] THINPREP PAP, IMAGED: NEGATIVE FOR SQUAMOUS INTRAEPITHELIAL [...] 11/27/2016, PAP HX NEGATIVE, [Z01.419] Jessica Magallanes [facility] LAB CYTOLOGY ORDERABLES Final R esult HISTORICAL TESTING LAB RESULTING AGENCY from Last 3 Months or Most Recently Relevant to Health Maintenance Insurance [facility] Care Teams Aerospace Manager Relationship Specialty Start Date End Date Maryann Westbrook MD [address] [address] PCP - General Internal Medicine 01/10/21
--- OUTSIDE RECORDS SUMMARY | 2025-04-16 07:39 | XMS_ITS | Encounter Summary ---
Author Organization [facility] Address [address] [place] [address] Care Team Providers Care Senior Electronics Technician Name Role Phone Maryann Westbrook MD Primary Care Provider Martin le Encounter Details Date Type Department Care Team Description 05/21/2021 Hospital Medical Records [address] [place] [address] Geovanna Gore MD Social History Tobacco Use Types Packs/Day Years Used Date Smoking Tobacco: Never Smokeless Tobacco: Never Alcohol Use Standard Drinks/Week Comments Yes 0.8 (1 standard drink = 0.6 oz p ure alcohol) socially Sex Assigned at Date Recorded Not on file Job Start Date Occupation Industry Not on file Not on file Not on file documented as of this encounter Plan of Treatment Not on file documented as of this encounter Visit Diagnoses Not on filedocumented in this encounter Care Teams Senior Electronics Technician Relationship Specialty Start Date End Date Maryann Westbrook MD PCP - General Internal Medicine 01/10/21 documented as of this encounter
--- OUTSIDE RECORDS SUMMARY | 2025-04-16 07:39 | XMS_ITS | Encounter Summary ---
Author Organization [facility] Address [address] [place] [address] Care Team Providers Care Imaging Technologist Name Role Phone Maryann Westbrook MD Primary Care Provider Unavailab le Encounter Details Date Type Department Care Team Description 01/11/2021 Hospital Medical Records [address] [place] [address] Christopher Blair MD [address] [place] [phone] Social History Tobacco Use Types Packs/Day Years [...] on filedocumented in this encounter Care Teams Imaging Technologist Relationship Specialty Start Date End Date Maryann Westbrook MD PCP - General Internal Medicine 01/10/21 documented as of this encounter
--- OUTSIDE RECORDS SUMMARY | 2025-04-16 07:39 | XMS_ITS | Encounter Summary ---
Author Organization [facility] Address [address] [place] [address] Care Team Providers Care Daycare Teacher Name Role Phone Maryann Westbrook MD Primary Care Provider Martin regalado Encounter Details Date Type Department Care Team Description 05/16/2021 Release of Information Medical Records [address] [place] [id number] Abstract, Provider Social History Tobacco Use Types Packs/Day Years [...] on filedocumented in this encounter Care Teams Daycare Teacher Relationship Specialty Start Date End Date Maryann Westbrook MD PCP - General Internal Medicine 01/10/21 documented as of this encounter
--- OUTSIDE RECORDS SUMMARY | 2025-04-16 07:39 | XMS_ITS | Clinical Summary ---
Author Organization [facility] Address [address] [place] [address] Care Team Providers Care Health Physics Technician Name Role Phone Maryann Westbrook MD Primary Care Provider Unavailab le Allergies No known active allergies Medications No known medications Active Problems Problem Noted Date Nephrolithiasis 07/05/2021 Overview: H/o right-sided lower pole staghorm kidney stone s/p lithotripsy with Dr. 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: Right breast, biopsied Knee pain 12/02/2011 Immunizations Name Administration Dates Next Due COVID-19 (Pfizer) 11/18/2020,10/28/2020 Influenza (>6 Months) Split Preservative Free Influenza Flu (PT Reported) 05/11/2019, 6 Influenza Vaccine-preservati ve Free-quadrivalent 4 Years 04/02/2021 TD (STATE SUPPLIED FOR ADULTS AND CHILDREN) 02/18 Tdap 12/02/2011 Family History Medical History Relation Name Comments CA Breast Aunt paternal aunt, 60s Diabetes Brother 1 HTN, cholestero l Hypertension Brother 2 Hypertension Brother 3 No Known Problems Brother 4 No Known Problems Brother 5 No Known Problems Brother 6 No Known Problems Daughter CA Colon Father hypertension, h yperlipidemia, hypothyroid, dementia Hypertension Mother cholesterol, DM , smoker, AAA Diabetes Sister COPD, cholester ol No Known Problems Son CA Ovarian Negative Hx Relation Name Status Comments Aunt Brother [...] file Not on file Not on file Last Filed Vital Signs Vital Sign Reading Time Taken Comments Blood Pressure 124/89 08/15/2023 2:31 PM EST Pulse 87 08/15/2023 2:31 PM EST Temperature 35.7 C (96.3 F) 04/02/2021 9:03 AM EDT Respiratory Rate 16 08/15/2023 2:31 PM EST Oxygen Saturation 98% 02/05/2021 1:46 PM EDT Inhaled Oxygen Concentration - - Weight 67.9 kg (149 lb 9.6 oz) 08/15/2023 2:31 P M EST Height 170.2 cm (5' 7 ) 08/15/2023 2:31 PM EST Body Mass Index 23.43 08/15/2023 2:31 PM EST Plan of Treatment Health Maintenance Due Date Last Done Comments SHINGLES VACCINE (1 of 2) 2017 DTAP/TDAP/TD (2 - Td or Tdap) 12/01/2021 12/02/2011, 03/02/2007 COLON CANCER SCREENING 12/18/2021 12/18/2016 BASELINE HEALTH EXAM 40-64 04/02/202304/02, 04/02/2021, 06/14/2016, Additional history exists Covid-19 Vaccine (3 - 2022-2 4 season) 2025 11/18/2020, 10/28/2020 INFLUENZA (#1) 2025 04/02/2021, 03/21, 05/11/2019 (Completed), Additional history exists MAMMOGRAM 04/23/2025 04/23/2024, 03/22, 04/12/2022, Additional history exists CHOLESTEROL SCREENING 04/02/2026 04/02/2021 , 06/14/2016, 12/03/2011 PNEUMOCOCCAL VACCINE FOR HIG H RISK PATIENTS (#1) 2032 HEPATITIS C SCREENING Completed 04/02/2021 Care Teams Health Physics Technician Relationship Specialty Start Date End Date Maryann Westbrook MD PCP - General Internal Medicine 01/10/21
--- OUTSIDE RECORDS SUMMARY | 2025-04-16 07:39 | XMS_ITS | Encounter Summary ---
Author Organization [facility] Address [address] [place] [address] Care Team Providers Care Heart Specialist Name Role Phone Maryann Westbrook MD Primary Care Provider Unavailab le Encounter Details Date Type Department Care Team Description 01/17/2021 Orders Only Medical Records [address] [place] [address] Christopher Blair MD [address] [place] [phone] Social History Tobacco Use Types Packs/Day Years Used Date Smoking Tobacco: Never Smokeless Tobacco: Never Alcohol Use Standard Drinks/Week Comments Yes 0.8 (1 standard drink = 0.6 oz p ure alcohol) occ Sex Assigned at Date Recorded Not on file Job Start Date Occupation Industry Not on file Not on file Not on file documented as of this encounter Plan of Treatment Not on file documented as of this encounter Procedures Procedure Name Priority Date/Time Associated Diagnosis Comments OUTSIDE PATHOLOGY Routine 01/11/2021 documented in this encounter Results * OUTSIDE PATHOLOGY (01/11/2021) Christopher Blair MD OUTSIDE LAB documented in this encounter Visit Diagnoses Not on filedocumented in this encounter Care Teams Heart Specialist Relationship Specialty Start Date End Date Maryann Westbrook MD PCP - General Internal Medicine 01/10/21 documented as of this encounter
--- OUTSIDE RECORDS SUMMARY | 2025-04-16 07:39 | XMS_ITS | Encounter Summary ---
Author Organization [facility] Address [address] [place] [address] Care Team Providers Care Stock Puller Name Role Phone Nehal Hagen MD Primary Care Provider Unava ilable Maryann Westbrook MD Primary Care Provider Unavailab le Encounter Details Date Type Department Care Team Description 03/06/2015 Release of Information Medical Records [address] [place] [phone] Abstract, Provider Social History Tobacco Use Types [...] on filedocumented in this encounter Care Teams Stock Puller Relationship Specialty Start Date End Date Nehal Hagen MD PCP - General Internal Medicine 11/13/11 01/09/21 Maryann Westbrook MD PCP - General Internal Medicine 01/10/21 documented as of this encounter
--- OUTSIDE RECORDS SUMMARY | 2025-04-16 07:39 | XMS_ITS | Encounter Summary ---
Author Organization [facility] Address [address] [place] [address] Care Team Providers Care Energy Scheduler Name Role Phone Nehal Hagen MD Primary Care Provider Unava Maryann Gonzalez MD Primary Care Provider Unavailab le Encounter Details Date Type Department Care Team Description 12/09/2016 SCAN Medical Records [address] [place] [id number] Abstract, Provider Social History Tobacco Use Types [...] Date/Time Associated Diagnosis Comments OUTSIDE PATHOLOGY Routine 10/30/2016 documented in this encounter Results * OUTSIDE PATHOLOGY (10/30/2016) Provider Abstract OUTSIDE LAB documented in this encounter Visit Diagnoses Not on filedocumented in this encounter Care Teams Energy Scheduler Relationship Specialty Start Date End Date Nehal Hagen MD PCP - General Internal Medicine 11/13/11 01/09/21 Maryann Westbrook MD PCP - General Internal Medicine 01/10/21 documented as of this encounter
[2025-04-16 08:56] LABS: Cholesterol 212 mg/dL (<200); HDL Cholesterol 60 mg/dL (>40); Triglycerides 71 mg/dL (<150)
== END 2025-04-16 07:37 | disposition home or self-care (01) ==
LOC: HO.LAB 07:36
DX: E78.00 Pure hypercholesterolemia, unspecified (principal)
CPT/HCPCS: 36415; 80061

== ENCOUNTER 2025-05-27 08:43 | Outpatient (AMB) | payer OTHER, SELFPAY ==
[2025-05-27 09:38] VITALS: BP 124/82; PULSE 76; TEMP 36.6; O2SAT 98; BMI 24.0
--- NOTE | 2025-05-27 09:38 | MHC.OFFWIV ---
Intake Vital Signs 05/27/25 09:38 Height 5 ft 7 in Weight 153 lb BMI 24.0 BP 124/82 Blood Pressure Location Rt brachial Position Sitting Pulse 76 Pulse Source Pulse Oximeter Temp 97.9 F Temp Source Oral Pulse Oximetry (%) 98 Oxygen Delivery Method Room Air Intake Visit Reasons: EP-lt shoulder pain Intake Note: pt presents with LT shoulder pain x2 weeks- denies any injury/surgeries Patient Tobacco Use Status: Never used Tobacco Allergies No Known Allergies (No Known Allergies*) Allergy (Verified 05/27/25 09:45) Do you need a note to return to daycare/school/sports/work: No HPI HPI Comments History of Present Illness Details This is a 60-year-old female with a past medical history of recurrent UTIs presenting for evaluation of left shoulder pain that she has had for the past 2 months. Patient denies any injury or trauma preceding the onset of her symptoms but is left-hand dominant and states that lifting items or working out exacerbates her pain. Patient has taken Tylenol only without relief of her discomfort. Patient denies having any chest pain, cough, hemoptysis, shortness for breath or back pain. [facility] Medical History (Updated 05/27/25 @ 10:[address]imes PA-C) Left shoulder strain Skin tag of anus Colon cancer screening Benign breast lumps Surgical History History of lumpectomy History of cholecystectomy Family History Father Colon cancer, Onset Age: 70 Paternal Aunt Breast cancer Social History Housing: House Alcohol intake: current Alcohol intake frequency: holidays/special occasions only Patient Tobacco Use Status: Never used Tobacco e-Cigarette/Vaping Use: Never Used Second Hand Smoke Exposure: No service: No Current occupational status: employed Current occupation: Medical Assist Cognitive needs: No Hearing needs: No Vision needs: Yes (Glasses) Review of Systems Const All systems reviewed & are unremarkable except as noted in HPI and below Reports no additional complaints ENT Reports no additional complaints Card Reports no additional complaints, Denies chest pain, Denies chest pain with activity, Denies rapid heart rate, Denies dyspnea and Denies dyspnea on exertion Resp Denies cough, Denies hemoptysis, Denies dyspnea and Denies dyspnea on exertion Musc Reports no additional complaints, Reports as per HPI and Reports arthralgias (Left shoulder) Skin/Breast Reports system reviewed and no additional complaints, except as documented Neuro Reports no additional complaints Endo Reports no additional complaints Raúl/Lymph Reports no additional complaints Aller/Immun Reports no additional complaints Physical Exam Vital Signs: Last Vital Signs Temp 97.9 F 05/27/25 09:38 Pulse 76 05/27/25 09:38 BP 124/82 05/27/25 09:38 Pulse Ox 98 05/27/25 09:38 Oxygen Delivery Method Room Air 05/27/25 09:38 BMI result Body Mass Index 24.0 Const General: cooperative, healthy appearing, comfortable, no acute distress, well developed, alert, awake and Physically active; No ill appearing Nutritional Appearance: average body habitus Orientation/consciousness: patient oriented x3 Limitations: no limitations Cardio Rate: regular rate Rhythm: regular rhythm Skin General skin exam: no rashes or lesions noted Neuro General: patient oriented x3 Extrem Other: Pain is elicited in the superior left shoulder with abduction of the LUE against resistance and internal rotation, no pain to palpation of the left clavicle, left deltoid or left scapula. Battery Container Inspector strength is equal bilaterally. Left upper extremity: normal to inspection, full ROM, no joint enlargement and shoulder/upper arm Details: inspection abnormal, normal ROM and other; no tenderness and no swelling; no edema Psych Appearance: grossly normal Mental Status: mental status grossly normal Insight: Good insight present (Psych) Judgement: Good judgement present (Psych) Assessment & Plan Assessment & Plan (1) Left shoulder strain: Comment: Patient is evaluated. Given her history coupled with her examination patient's symptoms are most consistent with a left shoulder strain. Patient will be discharged home with Naprosyn and a referral for physical therapy will be placed. Code(s): S46.912A - Strain of unspecified muscle, fascia and tendon at shoulder and upper arm level, left arm, initial encounter Qualifiers: Encounter type: initial encounter Qualified Code(s): S46.912A - Strain of unspecified muscle, fascia and tendon at shoulder and upper arm level, left arm, initial encounter Plan: Naprosyn 500 mg b.i.d. times 10 days, physical therapy daily intake for further evaluation and care. Orders: Orders PT Evaluation and Treatment Today S46.912A - Strain of unspecified muscle, fascia and tendon at shoulder and upper arm level, left arm, initial encounter Medications: New naproxen (Naprosyn) 500 mg PO BID 20 tabs 0RF Coding Level of Care Code Est Pt Level 3 (24597) Diagnoses Strain of left shoulder, initial encounter S46.912A Encounter type: initial encounter Time Spent (min) 20
== END 2025-05-27 10:09 | disposition home or self-care (01) ==
PROVIDERS: Visit Provider Physician Assistant
DX: S46.912A Strain of unspecified muscle, fascia and tendon at shoulder and upper arm level, left arm, initial encounter (principal)